=== PATIENT | female | born 1975 | race Caucasian/White ===

== ENCOUNTER 2018-02-27 20:35 | Emergency (ER) | payer OTHER ==
[~2018-02-27] VITALS: Ht 157.5 cm; Wt 93.9 kg
--- OUTSIDE RECORDS SUMMARY | ~2018-02-27 | XMS | Clinical Summary ---
Demographics + + + | Address | [address] | | | [place] [address] | + + + | Home Phone | | + + + | Preferred Language | Unknown | + + + | Marital Status | Unknown | + + + | Zoroastrianism Affiliation | Unknown | + + + | Race | Unknown | + + + | Ethnic Group | Unknown | + + + Author + + + | Author | Kory LawPal | + + + | Organization | [facility] | + + + | Address | Unknown | + + + | Phone | Unavailable | + + + Support + + +---------+ + | Name | Relationship | Address | Phone | + + +---------+ + | Contact,No | ECON | Unknown | | + + +---------+ + Care Team Providers + +------+ + | Care Head Waiter/Waitress Banquet Name | Role | Phone | + +------+ + | Darby eHnning NP | PP | | + +------+ + Allergies + + + + + + | Active Allergy | Reactions | Severity | Noted | Comments | | | | | Date | | + + + + + + | Amoxicillin | Rash | Medium | 12/01/19 | | | | | | 18 | | + + + + + + | Pregabalin | Swelling | Medium | 12/01/19 | Tongue swells | | | | | 18 | | + + + + + + | Ketorolac | Itching | Medium | 12/01/19 | | | | | | 18 | | + + + + + + | Tramadol | Rash | Medium | 12/01/19 | | | | | | 18 | | + + + + + + | Hydrocodone-Acetamin | Hives | High | 12/01/19 | | | ophen | | | 18 | | + + + + + + Current Medications + + +-------+---------+------+------+-------+ | Prescription | Sig. | Disp. | Refills | Star | End | Statu | | | | | | t | Date | s | | | | | | Date | | | + + +-------+---------+------+------+-------+ | omeprazole | Take 20 mg by mouth | | | | | Activ | | (PRILOSEC) 20 MG | every morning before | | | | | e | | capsule | breakfast. | | | | | | + + +-------+---------+------+------+-------+ | cyclobenzaprine | Take 10 mg by mouth | | | | | Activ | | (FLEXERIL) 10 MG | 3 (three) times | | | | | e | | tablet | daily as needed for | | | | | | | | Muscle spasms. | | | | | | + + +-------+---------+------+------+-------+ | albuterol | Inhale 2 puffs into | | | | | Activ | | (PROVENTIL | the lungs every 4 | | | | | e | | HFA;VENTOLIN HFA) | (four) hours as | | | | | | | 108 (90 Base) | needed for Wheezing. | | | | | | | MCG/ACT inhaler | | | | | | | + + +-------+---------+------+------+-------+ Active Problems + + + | Problem | Noted Date | + + + | Palpitations | 12/01/2017 | + + + Encounters +--------+ + + + + | Date | Type | Specialty | Care Team | Description | +--------+ + + + + | 12/09/ | Documentati | | Latoya Gonzalez, | Cardiac Event | | 2017 | on Only | | MD Gorman, | Monitor (7 day) | | | | | Terri Moreno CMA | | +--------+ + + + + | 12/09/ | Documentati | | Mine Barber, | Cardiac Event | | 2017 | on Only | | MA | Monitor (End of | | | | | | Study) | +--------+ + + + + | 12/03/ | Documentati | | Terri Gorman | Labs Only | | 2018 | on Only | | J, HAIRSPRING FABRICATION SUPERVISOR | | +--------+ + + + + | 12/01/ | Initial | | Latoya Gonzalez, | Abnormal EKG | | 2018 | consult | | MD | (Primary Dx); | | | | | | Palpitations | +--------+ + + + + | 12/01/ | Documentati | | Terri Gorman | Other (EKG) | | 2018 | on Only | | J, HAIRSPRING FABRICATION SUPERVISOR | | +--------+ + + + + from Last 3 Months Social History + +-------+ +--------+------+ | Tobacco Use | Types | Packs/Day | Years | Date | | | | | Used | | + +-------+ +--------+------+ | Former Smoker | | | | | + +-------+ +--------+------+ + +---+---+---+ | Smokeless Tobacco: | | | | | Never Used | | | | + +---+---+---+ + + +---------+ + | Alcohol Use | Drinks/We | oz/Week | Comments | | | ek | | | + + +---------+ + | No | | | | + + +---------+ + + + + | Sex Assigned at | Date Recorded | | | | + + + | Not on file | | + + + Last Filed Vital Signs + + + + | Vital Sign | Reading | Time Taken | + + + + | Blood Pressure | 150/76 | 12/01/2017 12:57 PM PST | + + + + | Pulse | 76 | 12/01/2017 12:57 PM PST | + + + + | Temperature | - | - | + + + + | Respiratory Rate | - | - | + + + + | Oxygen Saturation | 96% | 12/01/2017 12:57 PM PST | + + + + | Inhaled Oxygen | - | - | | Concentration | | | + + + + | Weight | 92.5 kg (204 lb) | 12/01/2017 12:57 PM PST | + + + + | Height | 157.5 cm (5' 2") | 12/01/2017 12:57 PM PST | + + + + | Body Mass Index | 37.31 | 12/01/2017 12:57 PM PST | + + + + Plan of Treatment +--------+---------+ + + + | Date | Type | Specialty | Care Team | Description | +--------+---------+ + + + | 04/06/ | Office | | Levi Garcia MD | | | 2018 | Visit | | [address] | | | | | | [place] | | | | | | [address] | | | | | | | | +--------+---------+ + + + | 05/10/ | Office | | Sonny Rod | | | 2017 | Visit | | MD Pam [address] | | | | | [address] | | | | | | [place] [address] | | | | | | [phone] | | | | | | | | +--------+---------+ + + + | 05/19/ | Office | | Levi Garcia MD | | | 2017 | Visit | | [address] | | | | | | [place] | | | | | | [address] | | | | | | | | +--------+---------+ + + + | 07/05/ | Office | | Sonny Rod | | | 2017 | Visit | | MD Pam [address] | | | | | [address] | | | | | | [place] [address] | | | | | | [phone] | | | | | | | | +--------+---------+ + + + + + + + + | Health Maintenance | Due Date | Last Done | Comments | + + + + + | Cervical Cancer | | | | | Screening (Pap) | 5 | | | + + + + + | Vaccine: Influenza | | 08/25/2011 | | | (Season Ended) | 8 | | | + + + + + | Vaccine: | | 09/09/2011 | | | Dtap/Tdap/Td (2 - | 1 | | | | Td) | | | | + + + + + Results EKG STANDARD 12 LEAD (12/01/2017 1:11 PM) + + + + | Component | Value | Ref Range | + + + + | Ventricular Rate | 70 | BPM | + + + + | Atrial Rate | 70 | BPM | + + + + | P-R Interval | 130 | ms | + + + + | QRS Duration | 76 | ms | + + + + | Q-T Interval | 378 | ms | + + + + | QTC Calculation | 408 | ms | | (Bezet) | | | + + + + | Calculated P [place] | 35 | degrees | + + + + | Calculated R [place] | 33 | degrees | + + + + | Calculated T [place] | 27 | degrees | + + + + | Diagnosis | Normal sinus rhythmNormal ECGNo previous | | | | ECGs availablePlease refer to Providers | | | | office visit note for Providers | | | | Interpretation.Confirmed by [facility] Read | | | | Only, SHAJI Alas ([id number]), manuscript editor Nathalia, | | | | John Pearl) on 12/01/2017 1:57:40 PM | | + + + + + + + | Specimen | Performing Laboratory | + + + | | [facility] [address] [place] [place] [place] [address] | + + + from Last 3 Months Insurance + +--------+ +------+-------+ + | Payer | Benefi | Subscriber | Type | Phone | Address | | | t Plan | ID | | | | | | / | | | | | | | Group | | | | | + +--------+ +------+-------+ + | MEDICAID | [employer] | xxxxxxxx | | | [address] | | | N | | | | [place] | | | [place] | | | | [phone] | | | STUDENT OFFICER | | | | | + +--------+ +------+-------+ + + +--------+ +--------+ + + | Guarantor Name | Accoun | Relation to | Date | Phone | Billing Address | | | t Type | Patient | of | | | | | | | | | | + +--------+ +--------+ + + | HUGOBECKY | Person | Self [birth year] Home: | [address] | | | al/Fam | | 1975 | [phone] [address] [place], | | | [place] | | | [phone] | [place] [address] | + +--------+ +--------+ + +
--- OUTSIDE RECORDS SUMMARY | ~2018-02-27 | XMS ---
Demographics + + + | Address | [address] | | | [address] | | | [place] [address] | + + + | Preferred Language | Unknown | + + + | Marital Status | Unknown | + + + | Sabianist Affiliation | Unknown | + + + | Race | Unknown | + + + | Ethnic Group | Unknown | + + + Author + + + | Author | [facility] | + + + | Organization | [facility] | + + + | Address | [address] | | | [place] [address] | + + + | Phone | | + + + Care Team Providers + + + + | Care Tool And Production Planner Name | Role | Phone | + + + + Unavailable | Unavailable | + + + + PROBLEMS +---------+ + + +--------+ + + | Type | Condition | ICD9-CM | [id number] | Onset | Condition | SNOMED | | | | Code | Code | Dates | Status | Code | +---------+ + + +--------+ + + | Problem | Hypertensi | | I10 | | Active | [id number] | | | on | | | | | | +---------+ + + +--------+ + + | Problem | Cervical | R59.0 | | | Active | [id number] | | | lymphadeno | | | | | | | | jl | | | | | | +---------+ + + +--------+ + + | Problem | Change in | R19.4 | | | Active | 25131454 | | | bowel | | | | | | | | habits | | | | | | +---------+ + + +--------+ + + | Problem | Dizziness | | R42 | | Active | [id number] | +---------+ + + +--------+ + + | Problem | Pain of | R10.10 | | | Active | 12140765 | | | upper | | | | | | | | abdomen | | | | | | +---------+ + + +--------+ + + | Problem | Back pain | | M54.9 | | Active | 808609009 | +---------+ + + +--------+ + + | Problem | Pharyngiti | | J02.9 | | Active | 784382006 | | | s | | | | | | +---------+ + + +--------+ + + | Problem | Eustachian | H69.80 | | | Active | 31819158 | | | tube | | | | | | | | dysfunctio | | | | | | | | n | | | | | | +---------+ + + +--------+ + + | Problem | Sánchez | B27.90 | | | Active | 450894571 | | | Waller | | | | | | | | infection | | | | | | +---------+ + + +--------+ + + | Problem | History of | Z87.19 | | | Active | 743017779 | | | stomach | | | | | | | | ulcers | | | | | | +---------+ + + +--------+ + + | Problem | Acute | | R10.13 | | Active | 42018461 | | | epigastric | | | | | | | | pain | | | | | | +---------+ + + +--------+ + + | Problem | GERD | | K21.9 | | Active | 661928791 | | | (gastroeso | | | | | | | | phageal | | | | | | | | reflux | | | | | | | | disease) | | | | | | +---------+ + + +--------+ + + | Problem | Fibromyalg | | M79.7 | | Active | 840384676 | | | ia | | | | | | +---------+ + + +--------+ + + | Problem | History of | Z87.19 | | | Active | 868929664 | | | hiatal | | | | | | | | hernia | | | | | | +---------+ + + +--------+ + + | Problem | Asthma | | J45.909 | | Active | 352796534 | +---------+ + + +--------+ + + ALLERGIES + + + + +--------+ | Substance | Reaction | Event Type | Date | Status | + + + + +--------+ | Tramadol HCl | rash | Drug Allergy | February, | Active | + + + + +--------+ | amoxicillin | rash | Drug Allergy | February, | Active | + + + + +--------+ | Vicodin | hives | Drug Allergy | February, | Active | + + + + +--------+ | Lyrica | lips swelling | Drug Allergy | February, | Active | + + + + +--------+ | Toradol | Itch | Non Drug | February, | Active | | | | Allergy | | | + + + + +--------+ SOCIAL HISTORY No smoking Hx information available PLAN OF CARE + +---------+ | Activity | Details | + +---------+ +---+ | | +---+ + + + | Follow Up | after fork lift mechanic has seen you Reason:null | + + + VITAL SIGNS + + + + | Height | 62 in | 2017-03-25 | + + + + | Weight | 196.2 lbs | 2017-03-25 | + + + + | BMI | 35.88 kg/m2 | 2017-03-25 | + + + + | Temperature | 97.6 degrees Fahrenheit | 2017-03-25 | + + + + | Heart Rate | 85 /min | 2017-03-25 | + + + + | Blood pressure systolic | 149 mm Hg | 2017-03-25 | + + + + | Blood pressure diastolic | 79 mm Hg | 2017-03-25 | + + + + MEDICATIONS + + +---------+ + + + +--------+ | Medicati | Instruct | Dosage | Frequenc | Start | End Date | Duration | Status | | on | ions | | y | Date | | | | + + +---------+ + + + +--------+ | Nexium | Orally | 1 | 24h | | | | Active | | 20 MG | Once a | capsule | | | | | | | | day | | | | | | | + + +---------+ + + + +--------+ | Albutero | Inhalati | 2 puffs | | Jul, | | 1 month | Active | | l | on q6hrs | | | 2015 | | | | | Sulfate | prn | | | | | | | | HFA 108 | | | | | | | | | (90 | | | | | | | | | Base) | | | | | | | | | MCG/ACT | | | | | | | | + + +---------+ + + + +--------+ RESULTS No Results PROCEDURES + + + + + | Procedure | Date Ordered | Related Diagnosis | Body Site | + + + + + | Est Level IV | March 25, 2017 | | | | Extended | | | | + + + + + IMMUNIZATIONS No Known Immunizations"
--- OUTSIDE RECORDS SUMMARY | ~2018-02-27 | XMS | Encounter Summary ---
Demographics + + + | Address | [address] | | | [place] [address] | + + + | Home Phone | | + + + | Preferred Language | Unknown | + + + | Marital Status | Unknown | + + + | Advent Affiliation | Unknown | + + + | Race | Unknown | + + + | Ethnic Group | Unknown | + + + Author + + + | Author | [facility] | + + + | Organization | [facility] | + + + | Address | Unknown | + + + | Phone | Unavailable | + + + Support + + +---------+ + | Name | Relationship | Address | Phone | + + +---------+ + | Contact,No | ECON | Unknown | | + + +---------+ + Care Team Providers + +------+ + | Care Outside Barrel Lathe Operator Name | Role | Phone | + +------+ + | Darby Henning NP | PCP | | + +------+ + Reason for Visit + + + | Reason | Comments | + + + | Establish Care | | + + + Consultation (Routine) + +--------+ + + + + | Status | Reason | Specialty | Diagnoses / | Referred By | Referred To | | | | | Procedures | Contact | Contact | + +--------+ + + + + | Authorized | | Cardiology | Diagnoses | Juvencio, | Carlos, | | | | | Abnormal | LIBORIO Pastor | MD Latoya | | | | | electrocardi | [address] | [address] | | | | | ogram (ECG) | [place] | Dr [address] | | | | | (EKG) | [place] [address] | [place] | | | | | Localized | Phone: | [phone] Phone: | | | | | edema | [phone] | [phone] | | | | | Procedures | Fax: | Fax: | | | | | consult | [phone] | [phone] | + +--------+ + + + + Encounter Details +--------+ + + + + | Date | Type | Department | Care Team | Description | +--------+ + + + + | 12/01/ | Initial | [facility] | Latoya South, | Abnormal EKG | | 2018 | consult | Cardiology [facility] | [address] | (Primary Dx); | | | | [address] | [address], | Palpitations | | | | [address] | [place] [address] | | | | | [place] [address] | [phone] | | | | | [phone] | | | +--------+ + + + + Social History + +-------+ +--------+------+ | Tobacco [...] on file | | + + + as of this encounter Last Filed Vital Signs + + + [...] PM PST | + + + + in this encounter Progress Notes Latoya South MD - 12/01/2017 1:00 PM PSTFormatting of this note may be different fro m the original. [facility] Service: Cardiology Initial Consult Note Name of Performance Reporter: Latoya South MD Reason for Consultation: Abnormal ECG Requesting Physician: Juvencio Internal [facility] History Obtained From: patient CHIEF COMPLAINT: Abnormal ECG HISTORY OF PRESENT ILLNESS: Patient is 42 year old female, has been complaining of palpitations. Episodes started havin g symptoms few months ago. Happen daily, last for 5-10 mins, happens more than once. Symptoms are associated with chest pressure/pain, diaphoresis, shortness of breath and jade r dizziness no syncopal episodes. Patient was diagnosed with fibromyalgia and since has been on disability. Takes care of her grandson, goes shopping greatly however she finds difficulty in ambulatio n secondary to her joint pain. Gets tired easily and needs to take breaks even while cleaning the house. Has history of hypertension however she gained weight on a medicine that she does not remem cheli, since she stopped taking it. REVIEW OF SYSTEMS Constitutional: Chronic fatigue. Chronic fibromyalgia. HENT: Negative for nosebleeds, no runny nose or sneezing. Eyes: Negative for visual disturbance, no double vision, tearing or itching. Respiratory: Negative for cough and shortness of breath, no hemoptysis Cardiovascular: As HPI. Gastrointestinal: Negative for nausea, vomiting, abdominal pain and blood in stool. Genitourinary: Negative for hematuria, no dysuria. Musculoskeletal: arthritic and joint pain. Skin: Negative for color change, no rash. Neurological: Negative for dizziness, syncope and numbness. Hematological: Does not bruise/bleed easily. Psychiatric/Behavioral: The patient is not nervous/anxious. PAST MEDICAL & SURGICAL HISTORY Past Medical History Diagnosis Date Arthralgia Asthma Past Surgical History Procedure Laterality Date APPENDECTOMY CHOLECYSTECTOMY LITHOTRIPSY TONSILLECTOMY TUBAL LIGATION MEDICATIONS Home Medications Current Outpatient Prescriptions: albuterol (PROVENTIL HFA;VENTOLIN HFA) 108 (90 Base) MCG/ACT inhaler, Inhale 2 puffs i nto the lungs every 4 (four) hours as needed for Wheezing., Disp: , Rfl: cyclobenzaprine (FLEXERIL) 10 MG tablet, Take 10 mg by mouth 3 (three) times daily as needed for Muscle spasms., Disp: , Rfl: omeprazole (PRILOSEC) 20 MG capsule, Take 20 mg by mouth every morning before breakfas t., Disp: , Rfl: Allergies Allergies Allergen Reactions Vicodin [Hydrocodone-Acetaminophen] Hives Amoxicillin Rash Lyrica [Pregabalin] Swelling Tongue swells Toradol [Ketorolac] Itching Tramadol Rash FAMILY HISTORY Family History Problem Relation Age of Onset Family history unknown: Yes SOCIAL HISTORY Social History Social History Marital status: Unknown Spouse name: N/A Number of children: N/A Years of education: N/A Occupational History Not on file. Social History Main Topics Smoking status: Former Smoker Smokeless tobacco: Never Used Alcohol use No Drug use: Unknown Sexual activity: Not on file Other Topics Concern Not on file Social History Narrative No narrative on file PHYSICAL EXAM Vital Signs: BP 150/76 (BP Location: Left upper arm, Patient Position: Sitting) | Pulse 76 | Ht 1.575 m (5' 2") | Wt 92.5 kg (204 lb) | SpO2 96% | BMI 37.31 kg/m Constitutional: Well-developed. Neck: No JVD present. No thyromegaly present. Cardiovascular: Regular rhythm, S1 normal and S2 normal. No murmur heard. Pulses: Carotid pulses are 2+ on the right side, and 2+ on the left side. Radial pulses are 2+ on the right side, and 2+ on the left side. Pulmonary/Chest: Effort normal and breath sounds normal. No wheezes. No rales. Abdominal: Soft. No tenderness. Musculoskeletal: No edema. Neurological: Alert. No cranial nerve deficit. Skin: Warm and dry. DATA 10/06/2017 WBC 10.9, hemoglobin 14.7, platelets 327, sodium 139, potassium 3.6, chloride 103, bicarbon ate 26, BUN 10, creatinine 0.9. GFR 68, AST 13, AST 13, alk phos 55, TSH 2.46 No results found for: NA, K, CL, CO2, BUN, CREATININE, GLUCOSE, CALCIUM No results found for: CKTOTAL, CKMB, CKMBINDEX, TROPONINI No results found for: WBC, HGB, HCT, MCV, PLT No results found for: CHOL, TRIG, LDL, LDL, GLUF, HGBA1C, TSH EK12/01/2017 Ordered and reviewed by myself showed normal sinus rhythm with normal axis overall normal E KG. Last Echo: Last stress test: Last cath: Carotid US: AAA screening: Lower extremity US: OTHER: ASSESSMENT & PLAN Patient is 42-year-old female with the following medical problems 1. Palpitation, daily basis associated with dizziness, shortness of breath and chest pain. 2. Hypertension, untreated. 3. Fibromyalgia. 4. Limited activity level. Recommendations: Giving patient's symptoms will proceed with event monitor to evaluate for any arrhythmia. Discussed with the patient starting antihypertensive however patient is concerned about gai bart weight. Will readdress with the patient after Holter monitor evaluation which may indicate a differ ent antihypertensive. Discussed with the patient lifestyle and weight loss. Thank you for allowing me to participate in the care of this patient. Primary Care Physician: aDrby South MD 12/01/2017in this encounter Plan of Treatment +--------+---------+ + + + | Date | Type | Specialty | Care Team | Description | +--------+---------+ + + + | 04/06/ | Office | Rheumatology | Levi Garcia MD | | | 2017 | Visit | | [address] | | | | | | [place] | | | | | | [address] | | | | | | | | +--------+---------+ + + + | 05/10/ | Office | Neurology | Sonny Rod | | | 2017 | Visit | | MD Pam [address] | | | | | [address] | | | | | | [place] [address] | | | | | | [phone] | | | | | | | | +--------+---------+ + + + | 05/19/ | Office | Rheumatology | Levi Garcia MD | | | 2017 | Visit | | [address] | | | | | | [place] | | | | | | [address] | | | | | | | | +--------+---------+ + + + | 07/05/ | Office | Neurology | Sonny Rod | | | 2017 | Visit | | MD Pam [address] | | | | [address] | | | | | | [place] [address] | | | | | | [phone] | | | | | | | | +--------+---------+ + + + + +--------+ + + | Name | Priori | Associated Diagnoses | Order Schedule | | | ty | | | + +--------+ + + | CRD Cardiac Event Monitor | Routin | Abnormal EKG | Expected: | | | e | Palpitations | 12/01/2017, Expires: | | | | | 12/01/2018 | + +--------+ + + as of this encounter Results EKG STANDARD 12 LEAD (12/01/2017 1:11 [...] + + + + | Calculated P [place] | 35 | degrees | + + + + | Calculated R [place] | 33 | degrees | + + + + | Calculated T [place] | 27 | degrees | + + + + | Diagnosis | Normal sinus rhythmNormal ECGNo previous | | | | ECGs availablePlease refer to Providers | | | | office visit note for Providers | | | | Interpretation.Confirmed by [facility] [place] Read | | | | Only, SHAJI Alas ([id number]), primer expeditor and drier Nathalia, | | | | John ([id number]) on 12/01/2017 1:57:40 PM | | + + + + + + + | Specimen | Performing Laboratory | + + + | | [facility] E[facility] [address] [place] [address] | + + + in this encounter Visit Diagnoses + + | Diagnosis | + + | Abnormal EKG - Primary | + + | Nonspecific abnormal electrocardiogram (ECG) (EKG) | + + | Palpitations | + +
--- OUTSIDE RECORDS SUMMARY | ~2018-02-27 | XMS | Encounter Summary ---
Demographics + + + | Address | [address] | | | [place] [address] | + + + | Home Phone | | + + + | Preferred Language | Unknown | + + + | Marital Status | Single | + + + | Rastafarian Affiliation | Unknown | + + + | Race | Unknown | + + + | Ethnic Group | Unknown | + + + Author + + + | Author | [facility] | | | and [place] | + + + | Organization | [facility] | | | and [place] | + + + | Address | Unknown | + + + | Phone | Unavailable | + + + Support + + +---------+ + | Name | Relationship | Address | Phone | + + +---------+ + | None,Provided | ECON | Unknown | + | + + +---------+ + | Listed,None | ECON | Unknown | + | + + +---------+ + Care Team Providers + +------+ + | Care Quick Technician Name | Role | Phone | + +------+ + | Darby Henning | PCP | | + +------+ + Encounter Details +--------+ + + + + | Date | Type | Department | Care Team | Description | +--------+ + + + + | 12/21/ | Abstract | [facility] [place] | [facility], | | | 2018 | | GASTROENTEROLOGY | EBONY Sesay [address] | | | | | [address] [place] | [place] | | | | | [address] [place], [place] | [place], [place] | | | | | [address] | [address] | | | | | [phone] | | | +--------+ + + + + Social History + +-------+ +--------+ + | Tobacco Use | Types | Packs/Day | Years | Date | | | | | Used | | + +-------+ +--------+ + | Former Smoker | | 1 | 17 | Quit: 09/06/2012 | + +-------+ +--------+ + + +---+---+---+ | Smokeless Tobacco: | | [...] + + + as of this encounter Plan of Treatment Not on fileas of this encounter Results CBC with Differential (10/06/2017) + +-------+ + | Component | Value | Ref Range | + +-------+ + | MCH | 30.0 | 26.0 - 33.0 pg | + +-------+ + | MCHC | 33.0 | 30.0 - 36.0 % | + +-------+ + | BASOPHILS % | 0.3 | 0.0 - 2.0 % | + +-------+ + + + + | Specimen | Performing Laboratory | + + + | Blood | | + + + Comprehensive Metabolic Panel (10/06/2017) + +-------+ + | Component | Value | Ref Range | + +-------+ + | ANION GAP | 15 | 7 - 21 mmol/L | + +-------+ + | BUN/Creatinine Ratio | 11.1 | 6 - 28.6 | + +-------+ + | Globulin | 3 | 1.8 - 3.5 | + +-------+ + | Albumin/Globulin | 1.4 | 1.1 - 2.4 | | Ratio | | | + +-------+ + + + + | Specimen | Performing Laboratory | + + + | Blood | | + + + Hepatitis A, B, C Panel, Reflex (10/06/2017) + + + + | Component | Value | Ref Range | + + + + | HEP A IGM AB, REF | Negative | | + + + + | Hepatitis B Surface | Negative | | | Ag, External | | | + + + + | Hepatitis B Core Ab, | Non Reactive | Non Reactive | | Total | | | + + + + | HCV Ab | Negative | | + + + + | HEP B SURFACE | Negative | | | ANTIBODY | | | + + + + + + + | Specimen | Performing Laboratory | + + + | Blood | | + + + External Lab: SURINDER (10/06/2017) + +-------+ + | Component | Value | Ref Range | + +-------+ + | BUN, External | 10 | 6 - 23 | + +-------+ + + + + | Specimen | Performing Laboratory | + + + | | EXTERNAL LAB | + + + External Lab: Glucose (10/06/2017) + +-------+ + | Component | Value | Ref Range | + +-------+ + | Glucose, External | 85 | 70 - 100 | + +-------+ + + + + | Specimen | Performing Laboratory | + + + | | EXTERNAL LAB | + + + External Lab: ALT (10/06/2017) + +-------+ + | Component | Value | Ref Range | + +-------+ + | ALT, External | 13 | 7 - 52 | + +-------+ + + + + | Specimen | Performing Laboratory | + + + | | EXTERNAL LAB | + + + External Lab: AST (10/06/2017) + +-------+ + | Component | Value | Ref Range | + +-------+ + | AST, External | 13 | 13 - 39 | + +-------+ + + + + | Specimen | Performing Laboratory | + + + | | EXTERNAL LAB | + + + External Lab: Alkaline Phosphatase (10/06/2017) + +-------+ + | Component | Value | Ref Range | + +-------+ + | ALP, External | 55 | 31 - 130 | + +-------+ + + + + | Specimen | Performing Laboratory | + + + | | EXTERNAL LAB | + + + External Lab: Bilirubin, Total (10/06/2017) + +-------+ + | Component | Value | Ref Range | + +-------+ + | Bilirubin, Total, | 0.4 | 0 - 1.2 | | External | | | + +-------+ + + + + | Specimen | Performing Laboratory | + + + | | EXTERNAL LAB | + + + External Lab: Albumin (10/06/2017) + +-------+ + | Component | Value | Ref Range | + +-------+ + | Albumin, External | 4.3 | 3.5 - 5 | + +-------+ + + + + | Specimen | Performing Laboratory | + + + | | EXTERNAL LAB | + + + External Lab: Protein, Total (10/06/2017) + +-------+ + | Component | Value | Ref Range | + +-------+ + | Protein, Total, | 7.3 | 6 - 8 | | External | | | + +-------+ + + + + | Specimen | Performing Laboratory | + + + | | EXTERNAL LAB | + + + External Lab: Calcium (10/06/2017) + +-------+ + | Component | Value | Ref Range | + +-------+ + | Calcium, External | 9 | 8.4 - 10.2 | + +-------+ + + + + | Specimen | Performing Laboratory | + + + | | EXTERNAL LAB | + + + External Lab: Carbon Dioxide (10/06/2017) + +-------+ + | Component | Value | Ref Range | + +-------+ + | Carbon Dioxide, | 25 | 19 - 31 | | External | | | + +-------+ + + + + | Specimen | Performing Laboratory | + + + | | EXTERNAL LAB | + + + External Lab: Chloride (10/06/2017) + +-------+ + | Component | Value | Ref Range | + +-------+ + | Chloride, External | 103 | 95 - 112 | + +-------+ + + + + | Specimen | Performing Laboratory | + + + | | EXTERNAL LAB | + + + External Lab: Potassium (10/06/2017) + +-------+ + | Component | Value | Ref Range | + +-------+ + | Potassium, External | 3.6 | 3.6 - 5.1 | + +-------+ + + + + | Specimen | Performing Laboratory | + + + | | EXTERNAL LAB | + + + External Lab: Sodium (10/06/2017) + +-------+ + | Component | Value | Ref Range | + +-------+ + | Sodium, External | 139 | 132 - 143 | + +-------+ + + + + | Specimen | Performing Laboratory | + + + | | EXTERNAL LAB | + + + External Lab: CBC (10/06/2017) + +-------+ + | Component | Value | Ref Range | + +-------+ + | WBC, External | 10.9 | 4.5 - 11 | + +-------+ + | HGB, External | 14.7 | 12 - 16 | + +-------+ + | HCT, External | 44 | 35 - 45 | + +-------+ + | PLT, External | 327 | 140 - 440 | + +-------+ + | Neutrophils %, | 66.2 | 39 - 80 | | External | | | + +-------+ + | Lymphocytes %, | 26 | 24 - 44 | | External | | | + +-------+ + | Monocytes %, | 4.9 | 0 - 12 | | External | | | + +-------+ + | Eosinophils %, | 2.6 | 0 - 6 | | External | | | + +-------+ + | RBC, External | 4.98 | 3.8 - 5.1 | + +-------+ + | MCV, External | 88 | 81 - 99 | + +-------+ + | RDW, External | 13.4 | 10.5 - 15 | + +-------+ + + + + | Specimen | Performing Laboratory | + + + | | EXTERNAL LAB | + + + External Lab: TSH (10/06/2017) + +-------+ + | Component | Value | Ref Range | + +-------+ + | TSH, External | 2.46 | 0.27 - 4.2 | + +-------+ + + + + | Specimen | Performing Laboratory | + + + | Blood | EXTERNAL LAB | + + + External Lab: eGFR (10/06/2017) + +-------+ + | Component | Value | Ref Range | + +-------+ + | eGFR, External | >60 | 60 - 99,999 | + +-------+ + + + + | Specimen | Performing Laboratory | + + + | Blood | EXTERNAL LAB | + + + External Lab: Creatinine (10/06/2017) + +-------+ + | Component | Value | Ref Range | + +-------+ + | Creatinine, External | 0.9 | 0.6 - 1.35 | + +-------+ + + + + | Specimen | Performing Laboratory | + + + | Blood | EXTERNAL LAB | + + + in this encounter Visit Diagnoses Not on filein this encounter"
--- OUTSIDE RECORDS SUMMARY | ~2018-02-27 | XMS | Encounter Summary ---
Demographics + + + | Address | [address] | | | [place] [address] | + + + | Home Phone | | + + + | Preferred Language | Unknown | + + + | Marital Status | Unknown | + + + | Roman Catholic Affiliation | Unknown | + + + | Race | Unknown | + + + | Ethnic Group | Unknown | + + + Author + + + | Author | [employer] | + + + | Organization | [facility] | + + + | Address | Unknown | + + + | Phone | Unavailable | + + + Support + + +---------+ + | Name | Relationship | Address | Phone | + + +---------+ + | Contact,No | ECON | Unknown | | + + +---------+ + Care Team Providers + +------+ + | Care Credentialing Coordinator Name | Role | Phone | + +------+ + | Darby Henning NP | PCP | | + +------+ + Reason for Visit +--------+ + | Reason | Comments | +--------+ + | Other | EKG | +--------+ + Encounter Details +--------+ + + + + | Date | Type | Department | Care Team | Description | +--------+ + + + + | 12/01/ | Documentati | [facility] | Terri Gorman | Aurelia (EKG) | | 2018 | on Only | Cardiology Sebastien Moreno CMA | | | | | [address] | | | | | | [address] | | | | | | [place] [address] | | | | | | [phone] | | | +--------+ + + + [...] as of this encounter Plan of Treatment +--------+---------+ + + + | Date | Type | Specialty | Care Team | Description | +--------+---------+ + + + | 04/06/ | Office | Rheumatology | Levi Garcia MD | | | 2017 | Visit | | [address] | | | | | | [place] | | | | | | [address] | | | | | | | | +--------+---------+ + + + | 05/10/ | Office | Neurology | Sonny Rod | | | 2017 | Visit | | [address] | | | | | | [address] | | | | | | [place] [address] | | | | | | [phone] | | | | | | | | +--------+---------+ + + + | 05/19/ | Office | Rheumatology | Levi Garcia MD | | | 2017 | Visit | | [address] | | | | | | [place] | | | | | | [address] | | | | | | | | +--------+---------+ + + + | 07/05/ | Office | Neurology | Sonny Rod | | | 2017 | Visit | | [address] | | | | | | [address] | | | | | | [place] [address] | | | | | | [phone] | | | | | | | | +--------+---------+ + + + as of this encounter Visit Diagnoses Not on filein this encounter"
--- OUTSIDE RECORDS SUMMARY | ~2018-02-27 | XMS | Clinical Summary ---
Demographics + + + | Address | [address] | | | [place] [address] | + + + | Home Phone | | + + + | Preferred Language | Unknown | + + + | Marital Status | Single | + + + | Jewish Affiliation | Unknown | + + + | Race | Unknown | + + + | Ethnic Group | Unknown | + + + Author + + + | Author | [facility] | | | and [place] | + + + | Organization | [facility] | | | and [...] Team Providers + +------+ + | Care Glove Operator Name | Role | Phone | + +------+ + | Darby Henning | PP | | + +------+ + Allergies Not on File Current Medications + + +-------+---------+------+------+-------+ | Prescription | Sig. | Disp. | Refills | Star | End | Statu | | | | | | t | Date | s | | | | | | Date | | | + + +-------+---------+------+------+-------+ | esomeprazole | Take 20 mg by mouth | | | | | Activ | | (NEXIUM) 20 mg | every morning | | | | | e | | capsule | (before breakfast). | | | | | | + + +-------+---------+------+------+-------+ | albuterol (PROAIR | Inhale 2 puffs into | | | | | Activ | | HFA) 90 mcg/puff | the lungs every 6 | | | | | e | | inhaler | hours as needed for | | | | | | | | Wheezing. | | | | | | + + +-------+---------+------+------+-------+ Active Problems Not on file Encounters +--------+ + + + + | Date | Type | Specialty | Care Team | Description | +--------+ + + + + | 12/21/ | Abstract | | Heriberto, | | | 2017 | | | EBONY Sesay | | +--------+ + + + + from Last 3 Months Immunizations + + + + | Name | Dates Previously Given | Next Due | + + + + | INFLUENZA, | 07/29/2016 | | | UNSPECIFIED | | | | FORMULATION | | | + + + + Family History + + +---------+ + | Medical History | Relation | Name | Comments | + + +---------+ + | No Known Problems | Child | | | + + +---------+ + | No Known Problems | Child | | | + + +---------+ + | No Known Problems | Child | | | + + +---------+ + | Cancer | Father | | | + + +---------+ + | No Known Problems | Maternal | | | | | Grandfath | | | | | er | | | + + +---------+ + | No Known Problems | Maternal | | | | | Grandmoth | | | | | er | | | + + +---------+ + | No Known Problems | Mother | | | + + +---------+ + | Breast cancer | Other | FAMILY | | | | | HX | | + + +---------+ + | Cervical cancer | Other | FAMILY | | | | | HX | | + + +---------+ + | Diabetes | Other | FAMILY | | | | | HX | | + + +---------+ + | Lung cancer | Other | FAMILY | | | | | HX | | + + +---------+ + | Prostate cancer | Other | FAMILY | | | | | HX | | + + +---------+ + | No Known Problems | Paternal | | | | | Grandfath | | | | | er | | | + + +---------+ + | No Known Problems | Paternal | | | | | Grandmoth | | | | | er | | | + + +---------+ + + + +--------+ + | Relation | Name | Status | Comments | + + +--------+ + | Child | | Alive | | + + +--------+ + | Child | | Alive | | + + +--------+ + | Child | | Other | STATUS UNKNOWN | + + +--------+ + | Father | | Alive | STATUS UNKNOWN | + + +--------+ + | Maternal Grandfather | | Other | STATUS UNKNOWN | + + +--------+ + | Maternal Grandmother | | Other | STATUS UNKNOWN | + + +--------+ + | Mother | | Alive | | + + +--------+ + | Other | FAMILY HX | Alive | | + + +--------+ + | Paternal Grandfather | | Other | STATUS UNKNOWN | + + +--------+ + | Paternal Grandmother | | Other | STATUS UNKNOWN | + + +--------+ + Social History + +-------+ +--------+ + [...] on file | | + + + Plan of Treatment + + + + + | Health Maintenance | Due Date | Last Done | Comments | + + + + + | Vaccine: | | | | | Dtap/Tdap/Td (1 - | 3 | | | | Tdap) | | | | + + + + + | CERVICAL CANCER | | | | | SCREENING (PAP EVERY | 5 | | | | 3 YEARS 21-64 ) | | | | + + + + + | Vaccine: Influenza | | 07/29/2016 | | | (Season Ended) | 8 | | | + + + + + Results Not on filefrom Last 3 Months Insurance + +--------+ +--------+ +---------+ | Payer | Benefi | Subscriber | Type | Phone | Address | | | t Plan | ID | | | | | | / | | | | | | | Group | | | | | + +--------+ +--------+ +---------+ | [employer] | [employer] | [phone] | Medica | [phone] | | | MEDICAID HMO | HEALTH | | id | [id number] | | | | [place] | | | | | | | [place]MO [place] | | | | | + +--------+ +--------+ +---------+ + +--------+ +--------+ + + | Guarantor Name | Accoun | Relation to | Date | Phone | Billing Address | | | t Type | Patient | of | | | | | | | | | | + +--------+ +--------+ + + | ANTIONETTE ARIAS | Person | Self [birth year] Home: | [address] | | | al/Fam | | 1975 | [phone] [address] [place], | | | [place] | | | [address] | [place] [address] | + +--------+ +--------+ + +"
--- OUTSIDE RECORDS SUMMARY | ~2018-02-27 | XMS | Encounter Summary ---
Demographics + + + | Address | [address] | | | [place] [address] | + + + | Home Phone | | + + + | Preferred Language | Unknown | + + + | Marital Status | Unknown | + + + | Taoist Affiliation | Unknown | + + + | Race | Unknown | + + + | Ethnic Group | Unknown | + + + Author + + + | Author | [employer] [employer] | + + + | Organization | [facility] | + + + | Address | Unknown | + + + | Phone | Unavailable | + + + Support + + +---------+ + | Name | Relationship | Address | Phone | + + +---------+ + | Contact,No | ECON | Unknown | | + + +---------+ + Care Team Providers + +------+ + | Care General Cleaner Name | Role | Phone | + [...] | | | | | [address] | | | | | | [address] | | | | | | [place] [address] | | | | | | [phone] | | | +--------+ + + + [...] [place] | | | | | | [address] | | | | | | | | +--------+---------+ + + + | 05/10/ | Office | Neurology | Sonny Rod | | | 2017 | Visit | | [address] | | | | | | [address] | | | | | | [place] [address] | | | | | | [phone] | | | | | | | | +--------+---------+ + + + | 05/19/ | Office | Rheumatology | Levi Garcia MD | | | 2017 | Visit | | [address] | | | | | | [place] | | | | | | [address] | | | | | | | | +--------+---------+ + + + | 07/05/ | Office | Neurology | Sonny Rod | | | 2017 | Visit | | [address] | | | | | | [address] | | | | | | [place] [address] | | | | | | [phone] | | | | | | | | +--------+---------+ + + + as of this encounter Visit Diagnoses Not on filein this encounter"
--- OUTSIDE RECORDS SUMMARY | ~2018-02-27 | XMS | Clinical Summary ---
Demographics + + + | Address | [address] | | | [place] [address] | + + + | Home Phone | | + + + | Preferred Language | Unknown | + + + | Marital Status | Unknown | + + + | Moravian Affiliation | Unknown | + + + | Race | Unknown | + + + | Ethnic Group | Unknown | + + + Author + + + | Author | [employer] | + + + | Organization | [facility] | + + + | Address | Unknown | + + + | Phone | Unavailable | + + + Support + + +---------+ + | Name | Relationship | Address | Phone | + + +---------+ + | Contact,No | ECON | Unknown | | + + +---------+ + Care Team Providers + +------+ + | Care Child Protective Services Social Worker Name | Role | Phone | + +------+ + | Darby Henning NP | PP | | + +------+ [...] 2018 | on Only | | J, SHIRRER | | +--------+ + + + + | 12/01/ | Initial | | Latoya Gonzalez, | Abnormal EKG | | 2018 | consult | | MD | (Primary Dx); | | | | | | Palpitations | +--------+ + + + + | 12/01/ | Documentati | | Terri Gorman | Other (EKG) | | 2018 | on Only | | J, SHIRRER | | +--------+ + + + + [...] [place] | | | | | | [address] | | | | | | | | +--------+---------+ + + + | 05/10/ | Office | | Sonny Rod | | | 2017 | Visit | | [address] | | | | | | [address] | | | | | | [place] [address] | | | | | | [phone] | | | | | | | | +--------+---------+ + + + | 05/19/ | Office | | Levi Garcia MD | | | 2017 | Visit | | [address] | | | | | | [place] | | | | | | [address] | | | | | | | | +--------+---------+ + + + | 07/05/ | Office | | Sonny Rod | | | 2017 | Visit | | [address] | | | | | | [address] | | | | | | [place] [address] | | | | | | [phone] | | | | | | | [...] + + + + | Calculated P [place] | 35 | degrees | + + + + | Calculated R [place] | 33 | degrees | + + + + | Calculated T [place] | 27 | degrees | + + + + | Diagnosis | Normal sinus rhythmNormal ECGNo previous | | | | ECGs availablePlease refer to Providers | | | | office visit note for Providers | | | | Interpretation.Confirmed by [facility] Tommie Read | | | | Only, SHAJI Alas ([id number]), map editor Nathalia, | | | | John Pearl) on 12/01/2017 1:57:40 PM | | + + + + + + + | Specimen | Performing Laboratory | + + + | | [facility] [address] [place] [address] | + + + from Last 3 [...] | | [place] | | | | [address] | | | ELECTRODYNAMICIST | | | | | + +--------+ [...] [place] | | | [address] | [place] [address] | + +--------+ +--------+ + +
--- OUTSIDE RECORDS SUMMARY | ~2018-02-27 | XMS | Encounter Summary ---
Demographics + + + | Address | [address] | | | [place] [address] | + + + | Home Phone | | + + + | Preferred Language | Unknown | + + + | Marital Status | Single | + + + | Caodaism Affiliation | Unknown | + + + | Race | Unknown | + + + | Ethnic Group | Unknown | + + + Author + + + | Author | [facility] | | | and [place] | + + + | Organization | [facility] | | | and [...] Team Providers + +------+ + | Care Rd Lab Technician Name | Role | Phone | + +------+ + | Darby Henning | PCP | | + +------+ + Encounter Details +--------+ + + + + | Date | Type | Department | Care Team | Description | +--------+ + + + + | 12/21/ | Abstract | [facility] [place] | [facility], | | | 2018 | | GASTROENTEROLOGY | EBONY Sesay [address] | | | | | [address] [place] | [place] | | | | | [address] [place], [place] | [place], [place] | | | | | [address] | [address] | | | | | [phone] | | | +--------+ + + + [...]
--- OUTSIDE RECORDS SUMMARY | ~2018-02-27 | XMS | Encounter Summary ---
Demographics + + + | Address | [address] | | | [place] [address] | + + + | Home Phone | | + + + | Preferred Language | Unknown | + + + | Marital Status | Unknown | + + + | Faith Affiliation | Unknown | + + + | Race | Unknown | + + + | Ethnic Group | Unknown | + + + Author + + + | Author | [employer] | + + + | Organization | [facility] | + + + | Address | Unknown | + + + | Phone | Unavailable | + + + Support + + +---------+ + | Name | Relationship | Address | Phone | + + +---------+ + | Contact,No | ECON | Unknown | | + + +---------+ + Care Team Providers + +------+ + | Care Still Cleaner Name | Role | Phone | + +------+ + | Darby Henning NP | PCP | | + +------+ + Reason for Visit + + + | Reason | Comments | + + + | Cardiac Event | 7 day | | Monitor | | + + + Holter (Routine) +--------+--------+ + + + + | Status | Reason | Specialty | Diagnoses / | Referred By | Referred To | | | | | Procedures | Contact | Contact | +--------+--------+ + + + + | Closed | | Cardiology | Diagnoses | Jean-Claude Gonzalez | | | | | 1 week | MD Latoya | Cardiology | | | | | monitor | [address] | | | | | Procedures | [address] | | | | | | CRD EVENT | [address] | [place] | | | | | MONITOR | [place], [place] | [address] | | | | | | [address] | Phone: | | | | | | Phone: | [phone] | | | | | | [phone] | Fax: | | | | | | Fax: | [phone] | | | | | | [phone] | | +--------+--------+ + + + + Encounter Details +--------+ + + + + | Date | Type | Department | Care Team | Description | +--------+ + + + + | 12/09/ | Documentati | [facility] | Latoya Gonzalez, | Cardiac Event | | 2018 | on Only | Cardiology Sebastien | [address] | Monitor (7 day) | | | | [address] | [address], | | | | | [place] [address] | [place] [address] | | | | | [place] [address] | [phone] | | | | | [phone] | | | | | | | Terri Gorman | | | | | | J, TECHNICAL DELIVERY MANAGER | | +--------+ + + + + [...] + + + as of this encounter Progress Notes Terri Gorman CMA - 12/09/2017 12:00 PM PST7 day cardiac event monitor placed on pa tie. EOB/Billing information discussed. Instructions given and understood. Patient instruc maurice to call [facility] for any billing or monitor questions.in this encounter Plan of Treatment +--------+---------+ + + + | Date | Type | Specialty | Care Team | Description | +--------+---------+ + + + | 04/06/ | Office | Rheumatology | Levi Garcia MD | | | 2017 | Visit | | [address] | | | | | | [place] | | | | | | [address] | | | | | | | | +--------+---------+ + + + | 05/10/ | Office | Neurology | Sonny Rod | | | 2017 | Visit | | [address] | | | | | | [address] | | | | | | [place] [address] | | | | | | [phone] | | | | | | | | +--------+---------+ + + + | 05/19/ | Office | Rheumatology | Levi Garcia MD | | | 2017 | Visit | | [address] | | | | | | [place] | | | | | | [address] | | | | | | | | +--------+---------+ + + + | 07/05/ | Office | Neurology | Sonny Rod | | | 2017 | Visit | | [address] | | | | | | [address] | | | | | | [place] [address] | | | | | | [phone] | | | | | | | | +--------+---------+ + + + as of this encounter Visit Diagnoses + + | Diagnosis | + + | Abnormal EKG | + + | Nonspecific abnormal electrocardiogram (ECG) (EKG) | + + | Palpitations | + +"
--- OUTSIDE RECORDS SUMMARY | ~2018-02-27 | XMS | Encounter Summary ---
Demographics + + + | Address | [address] | | | [place] [address] | + + + | Home Phone | | + + + | Preferred Language | Unknown | + + + | Marital Status | Unknown | + + + | Sikhism Affiliation | Unknown | + + + | Race | Unknown | + + + | Ethnic Group | Unknown | + + + Author + + + | Author | [employer] [employer] | + + + | Organization | [facility] | + + + | Address | Unknown | + + + | Phone | Unavailable | + + + Support + + +---------+ + | Name | Relationship | Address | Phone | + + +---------+ + | Contact,No | ECON | Unknown | | + + +---------+ + Care Team Providers + +------+ + | Care Application Systems Administrator Name | Role | Phone | + [...] | | | | (EKG) | [place] [address] | [place] | | | | | Localized | Phone: | [address] Phone: | | | | | edema | [phone] | [phone] | | | | | Procedures | Fax: | Fax: | | | | | consult | [phone] | [phone] | + +--------+ + + + + Encounter Details +--------+ + + + + | Date | Type | Department | Care Team | Description | +--------+ + + + + | 12/01/ | Initial | [facility] [place] | Latoya South, | Abnormal EKG | | 2018 | consult | Cardiology [facility] | [address] | (Primary Dx); | | | | [address] | [address], | Palpitations | | | | [address] | [place] [address] | | | | | [place] [address] | [phone] | | | | | [phone] | | | +--------+ + + + [...] may be different fro m the original. [facility]: Cardiology Initial Consult Note Name of Senior Gis Analyst: Latoya South MD Reason for Consultation: Abnormal [...] care of this patient. Primary Care Physician: Darby South MD 12/01/2017in this encounter Plan of Treatment +--------+---------+ + + + | Date | Type | Specialty | Care Team | Description | +--------+---------+ + + + | 04/06/ | Office | Rheumatology | Levi Garcia MD | | | 2017 | Visit | | [address] | | | | | | [place] | | | | | | [address] | | | | | | | | +--------+---------+ + + + | 05/10/ | Office | Neurology | Sonny Rod | | | 2017 | Visit | | MD Pam [address] | | | | | [address] | | | | | | [place] [address] | | | | | | [phone] | | | | | | | | +--------+---------+ + + + | 05/19/ | Office | Rheumatology | Levi Garcia MD | | | 2017 | Visit | | [address] | | | | | | [place] | | | | | | [address] | | | | | | | | +--------+---------+ + + + | 07/05/ | Office | Neurology | Sonny Rod | | | 2017 | Visit | | MD Pam [address] | | | | | [address] | | | | | | [place] [address] | | | | | | [phone] | | | | | | | [...] + + + + | Calculated P Marion | 35 | degrees | + + + + | Calculated R Marion | 33 | degrees | + + + + | Calculated T Marion | 27 | degrees | + + + + | Diagnosis | Normal sinus rhythmNormal ECGNo previous | | | | ECGs availablePlease refer to Providers | | | | office visit note for Providers | | | | Interpretation.Confirmed by [facility] Read | | | | Only, SHAJI Alas ([id number]), continuity editor Nathalia, | | | | John ([id number]) on 12/01/2017 1:57:40 PM | | + + + + + + + | Specimen | Performing Laboratory | + + + | | [facility] EKG [address] [place] [address] | + + + in this encounter Visit Diagnoses + + | Diagnosis | + + | Abnormal EKG - Primary | + + | Nonspecific abnormal electrocardiogram (ECG) (EKG) | + + | Palpitations | + +
--- OUTSIDE RECORDS SUMMARY | ~2018-02-27 | XMS | Clinical Summary ---
Demographics + + + | Address | [address] | | | [place] [address] | + + + | Home Phone | | + + + | Preferred Language | Unknown | + + + | Marital Status | Single | + + + | Jewish Affiliation | Unknown | + + + | Race | Unknown | + + + | Ethnic Group | Unknown | + + + Author + + + | Author | [facility] | | | and [place] | + + + | Organization | [facility] | | | [...] Team Providers + +------+ + | Care Regional Construction Manager Name | Role | Phone | + [...] | MODA | [phone] | Medica | [phone] | | | MEDICAID HMO | HEALTH [...] poornima | | | [address] | [place] [address] | + +--------+ +--------+ + +"
--- OUTSIDE RECORDS SUMMARY | ~2018-02-27 | XMS | Encounter Summary ---
Demographics + + + | Address | [address] | | | [place] [address] | + + + | Home Phone | | + + + | Preferred Language | Unknown | + + + | Marital Status | Unknown | + + + | Muslim Affiliation | Unknown | + + + | Race | Unknown | + + + | Ethnic Group | Unknown | + + + Author + + + | Author | [employer] [employer] | + + + | Organization | [facility] | + + + | Address | Unknown | + + + | Phone | Unavailable | + + + Support + + +---------+ + | Name | Relationship | Address | Phone | + + +---------+ + | Contact,No | ECON | Unknown | | + + +---------+ + Care Team Providers + +------+ + | Care Bit Tripoler Name | Role | Phone | + +------+ + | Darby Henning NP | PCP | | + +------+ + Reason for Visit + + + | Reason | Comments | + + + | Labs Only | | + + + Encounter Details +--------+ + + + + | Date | Type | Department | Care Team | Description | +--------+ + + + + | 12/03/ | Documentati | [facility] | Terri Gorman | Labs Only | | 2018 | on Only | Cardiology [facility] | [address] | | | | | [address] | | | | | | [place] | | | | | | [address] | | | | | | [phone] | | | +--------+ + + + [...] [place] | | | | | | [address] | | | | | | | | +--------+---------+ + + + | 05/10/ | Office | Neurology | Sonny Rod | | | 2017 | Visit | | MD [address] | | | | | | [address] | | | | | | [place] [address] | | | | | | [phone] | | | | | | | | +--------+---------+ + + + | 05/19/ | Office | Rheumatology | Levi Garcia MD | | | 2017 | Visit | | [address] | | | | | | [place] | | | | | | [address] | | | | | | | | +--------+---------+ + + + | 07/05/ | Office | Neurology | Sonny Rod | | | 2017 | Visit | | MD [address] | | | | | | [address] | | | | | | [place] [address] | | | | | | [phone] | | | | | | | | +--------+---------+ + + + as of this encounter Visit Diagnoses Not on filein this encounter"
--- OUTSIDE RECORDS SUMMARY | ~2018-02-27 | XMS | Encounter Summary ---
Demographics + + + | Address | [address] | | | [place] [address] | + + + | Home Phone | | + + + | Preferred Language | Unknown | + + + | Marital Status | Unknown | + + + | Anglican Affiliation | Unknown | + + + | Race | Unknown | + + + | Ethnic Group | Unknown | + + + Author + + + | Author | [employer] [employer] | + + + | Organization | [facility] | + + + | Address | Unknown | + + + | Phone | Unavailable | + + + Support + + +---------+ + | Name | Relationship | Address | Phone | + + +---------+ + | Contact,No | ECON | Unknown | | + + +---------+ + Care Team Providers + +------+ + | Care Onboarding Specialist Name | Role | Phone | + [...] | | | | | MONITOR | [place], [place] | [address] | | | | | | [address] | Phone: | | | | | | Phone: | [phone] | | | | | | [phone] | Fax: | | | | | | Fax: | [phone] | | | | | | [phone] | | +--------+--------+ + + + + Encounter Details +--------+ + + + + | Date | Type | Department | Care Team | Description | +--------+ + + + + | 12/09/ | Documentati | [facility] [place] | Latoya Gonzalez, | Cardiac Event | | 2018 | on Only | Cardiology [facility] | [address] | Monitor (7 day) | | | | [address] | [address], | | | | | [place] [address] | [place] [address] | | | | | [place] [address] | [phone] | | | | | [phone] | | | | | | | Terri Gorman | | | | | | J, PACKING MACHINE INSPECTOR | | +--------+ + + + + [...] and understood. Patient instruc maurice to call [facility] for any billing or monitor questions.in this [...] [place] | | | | | | [address] | | | | | | | | +--------+---------+ + + + | 05/10/ | Office | Neurology | Sonny Rod | | | 2017 | Visit | | MD [address] | | | | | | [address] | | | | | | [place] [address] | | | | | | [phone] | | | | | | | | +--------+---------+ + + + | 05/19/ | Office | Rheumatology | Levi Garcia MD | | | 2017 | Visit | | [address] | | | | | | [place] | | | | | | [address] | | | | | | | | +--------+---------+ + + + | 07/05/ | Office | Neurology | Sonny Rod | | | 2017 | Visit | | [address] | | | | | | [address] | | | | | | [place] [address] | | | | | | [phone] | | | | | | | | +--------+---------+ + + + as of this encounter Visit Diagnoses + + | Diagnosis | + + | Abnormal EKG | + + | Nonspecific abnormal electrocardiogram (ECG) (EKG) | + + | Palpitations | + +"
--- OUTSIDE RECORDS SUMMARY | ~2018-02-27 | XMS | Encounter Summary ---
Demographics + + + | Address | [address] | | | [place] [address] | + + + | Home Phone | | + + + | Preferred Language | Unknown | + + + | Marital Status | Unknown | + + + | Denominational Affiliation | Unknown | + + + | Race | Unknown | + + + | Ethnic Group | Unknown | + + + Author + + + | Author | [employer] [employer] | + + + | Organization | [facility] | + + + | Address | Unknown | + + + | Phone | Unavailable | + + + Support + + +---------+ + | Name | Relationship | Address | Phone | + + +---------+ + | Contact,No | ECON | Unknown | | + + +---------+ + Care Team Providers + +------+ + | Care Small Business Consultant Name | Role | Phone | + [...] | 2018 | on Only | Cardiology [facility] | [address] | | | | | [address] | | | | | | [place] | | | | | | [address] | | | | | | [phone] | | | +--------+ + + + [...] [place] | | | | | | [address] | | | | | | | | +--------+---------+ + + + | 05/10/ | Office | Neurology | Sonny Rod | | | 2017 | Visit | | MD [address] | | | | | | [address] | | | | | | [place] [address] | | | | | | [phone] | | | | | | | | +--------+---------+ + + + | 05/19/ | Office | Rheumatology | Levi Garcia MD | | | 2017 | Visit | | [address] | | | | | | [place] | | | | | | [address] | | | | | | | | +--------+---------+ + + + | 07/05/ | Office | Neurology | Sonny Rod | | | 2017 | Visit | | MD [address] | | | | | | [address] | | | | | | [place] [address] | | | | | | [phone] | | | | | | | | +--------+---------+ + + + as of this encounter Visit Diagnoses Not on filein this encounter"
--- OUTSIDE RECORDS SUMMARY | ~2018-02-27 | XMS | Encounter Summary ---
Demographics + + + | Address | [address] | | | [place] [address] | + + + | Home Phone | | + + + | Preferred Language | Unknown | + + + | Marital Status | Unknown | + + + | Jain Affiliation | Unknown | + + + | Race | Unknown | + + + | Ethnic Group | Unknown | + + + Author + + + | Author | [employer] [employer] | + + + | Organization | [facility] | + + + | Address | Unknown | + + + | Phone | Unavailable | + + + Support + + +---------+ + | Name | Relationship | Address | Phone | + + +---------+ + | Contact,No | ECON | Unknown | | + + +---------+ + Care Team Providers + +------+ + | Care Early Morning Name | Role | Phone | + +------+ + | Darby Henning NP | PCP | | + +------+ + Reason for Visit + + + | Reason | Comments | + + + | Cardiac Event | End of Study | | Monitor | | + + + Encounter Details +--------+ + + + + | Date | Type | Department | Care Team | Description | +--------+ + + + + | 12/09/ | Documentati | [facility] | [place], | Cardiac Event | | 2018 | on Only | Cardiology [facility] | [place] | Monitor (End of | | | | [address] | | Study) | | | | [facility] [place] | | | | | | [address] | | | | | | [phone] | | | +--------+ + + + [...] + as of this encounter Progress Notes Latoya Gonzalez MD - 12/09/2017 11:59 PM PST Cardiac Event Monitor Date of Event Monitor: 12/09/17 Referring Physician: [place]: Becky Alatorre : 1975 Age: 42 y.o. female INDICATIONS: Palpitations Conclusion: 1. TDs and 13 hours event monitor. Total of 949,354 beats. 2. Patient was predominantly in sinus rhythm, triggered one event that did not correlate wi th any arrhythmia. 3. Out rate was 78 bpm, minimal heart rate 52 bpm, maximal heart rate 1 58 bpm. 4. No arrhythmia was noted on this exam. in this encounter Plan of Treatment +--------+---------+ + + + | Date | Type | Specialty | Care Team | Description | +--------+---------+ + + + | 04/06/ | Office | Rheumatology | Levi Garcia MD | | | 2017 | Visit | | [address] | | | | | | [place] | | | | | | [address] | | | | | | | | +--------+---------+ + + + | 05/10/ | Office | Neurology | Sonny Rod | | | 2017 | Visit | | MD Pam [address] | | | | | [address] | | | | | | [place] [address] | | | | | | [phone] | | | | | | | | +--------+---------+ + + + | 05/19/ | Office | Rheumatology | Levi Garcia MD | | | 2017 | Visit | | [address] | | | | | | [place] | | | | | | [address] | | | | | | | | +--------+---------+ + + + | 07/05/ | Office | Neurology | Sonny Rod | | | 2017 | Visit | | MD Pam [address] | | | | | [address] | | | | | | [place] [address] | | | | | | [phone] | | | | | | | | +--------+---------+ + + + as of this encounter Visit Diagnoses + + | Diagnosis | + + | Palpitations - Primary | + +"
--- OUTSIDE RECORDS SUMMARY | ~2018-02-27 | XMS ---
Demographics + + + | Address | [address] | | | [address] | | | [place] [address] | + + + | Preferred Language | Unknown | + + + | Marital Status | Unknown | + + + | Advent Affiliation | Unknown | + + + | Race | Unknown | + + + | Ethnic Group | Unknown | + + + Author + + + | Author | [facility] | + + + | Organization | [facility] | + + + | Address | [address] | | | [place] [address] | + + + | Phone | | + + + Care Team Providers + + + + | Care Social Work Associate Name | Role | Phone | + + + + Unavailable | Unavailable | + + + + PROBLEMS +---------+ + + +--------+ + + | Type | Condition | ICD9-CM | [id number] | Onset | Condition | SNOMED | | | | Code | Code | Dates | Status | Code | +---------+ + + +--------+ + + | Problem | Hypertensi | | I10 | | Active | [id number] | | | on | | | | | | +---------+ + + +--------+ + + | Problem | Cervical | R59.0 | | | Active | 098215481 | | | lymphadeno | | | | | | | | jl | | | | | | +---------+ + + +--------+ + + | Problem | Change in | R19.4 | | | Active | 15024241 | | | bowel | | | | | | | | habits | | | | | | +---------+ + + +--------+ + + | Problem | Dizziness | | R42 | | Active | 994137399 | +---------+ + + +--------+ + + | Problem | Pain of | R10.10 | | | Active | 76800148 | | | upper | | | | | | | | abdomen | | | | | | +---------+ + + +--------+ + + | Problem | Back pain | | M54.9 | | Active | 227095958 | +---------+ + + +--------+ + + | Problem | Pharyngiti | | J02.9 | | Active | 910391762 | | | s | | | | | | +---------+ + + +--------+ + + | Problem | Eustachian | H69.80 | | | Active | 81467569 | | | tube | | | | | | | | dysfunctio | | | | | | | | n | | | | | | +---------+ + + +--------+ + + | Problem | Sánchez | B27.90 | | | Active | 861097210 | | | Waller | | | | | | | | infection | | | | | | +---------+ + + +--------+ + + | Problem | History of | Z87.19 | | | Active | 538028723 | | | stomach | | | | | | | | ulcers | | | | | | +---------+ + + +--------+ + + | Problem | Acute | | R10.13 | | Active | 94262787 | | | epigastric | | | | | | | | pain | | | | | | +---------+ + + +--------+ + + | Problem | GERD | | K21.9 | | Active | 589240524 | | | (gastroeso | | | | | | | | phageal | | | | | | | | reflux | | | | | | | | disease) | | | | | | +---------+ + + +--------+ + + | Problem | Fibromyalg | | M79.7 | | Active | 397967997 | | | ia | | | | | | +---------+ + + +--------+ + + | Problem | History of | Z87.19 | | | Active | 201483177 | | | hiatal | | | | | | | | hernia | | | | | | +---------+ + + +--------+ + + | Problem | Asthma | | J45.909 | | Active | 431017975 | +---------+ + + +--------+ + + ALLERGIES Unknown Allergies SOCIAL HISTORY No smoking Hx information available PLAN OF CARE VITAL SIGNS MEDICATIONS Unknown Medications RESULTS No Results PROCEDURES No Known procedures IMMUNIZATIONS No Known Immunizations"
--- OUTSIDE RECORDS SUMMARY | ~2018-02-27 | XMS ---
Demographics + + + | Address | [address] | | | [address] | | | [place] [address] | + + + | Preferred Language | Unknown | + + + | Marital Status | Unknown | + + + | Yazidism Affiliation | Unknown | + + + | Race | Unknown | + + + | Ethnic Group | Unknown | + + + Author + + + | Author | [facility] | + + + | Organization | [facility] | + + + | Address | [address] | | | [place] [address] | + + + | Phone | | + + + Care Team Providers + + + + | Care Emergency Medicine Physician Assistant Name | Role | Phone | + + + + Unavailable | Unavailable | + + + + PROBLEMS +---------+ + + +--------+ + + | Type | Condition | ICD9-CM | [id number] | Onset | Condition | SNOMED | | | | Code | Code | Dates | Status | Code | +---------+ + + +--------+ + + | Problem | Cervical | R59.0 | | | Active | 990100790 | | | lymphadeno | | | | | | | | jl | | | | | | +---------+ + + +--------+ + + | Problem | Back pain | | M54.9 | | Active | 376902033 | +---------+ + + +--------+ + + | Problem | Pharyngiti | | J02.9 | | Active | 528241959 | | | s | | | | | | +---------+ + + +--------+ + + | Problem | Acute | | J01.90 | | Active | 10526644 | | | sinusitis | | | | | | +---------+ + + +--------+ + + | Problem | Otitis | H60.90 | | | Active | 7451881 | | | externa | | | | | | +---------+ + + +--------+ + + | Problem | Eustachian | H69.80 | | | Active | 80699029 | | | tube | | | | | | | | dysfunctio | | | | | | | | n | | | | | | +---------+ + + +--------+ + + | Problem | Sánchez | B27.90 | | | Active | 823759746 | | | Waller | | | | | | | | infection | | | | | | +---------+ + + +--------+ + + | Problem | Dizziness | | R42 | | Active | 439070750 | +---------+ + + +--------+ + + | Problem | Pain of | R10.10 | | | Active | 28470307 | | | upper | | | | | | | | abdomen | | | | | | +---------+ + + +--------+ + + | Problem | GERD | | K21.9 | | Active | 484306963 | | | (gastroeso | | | | | | | | phageal | | | | | | | | reflux | | | | | | | | disease) | | | | | | +---------+ + + +--------+ + + | Problem | History of | Z87.19 | | | Active | 873263218 | | | hiatal | | | | | | | | hernia | | | | | | +---------+ + + +--------+ + + | Problem | Fibromyalg | | M79.7 | | Active | 560152464 | | | ia | | | | | | +---------+ + + +--------+ + + | Problem | Asthma | | J45.909 | | Active | 840031353 | +---------+ + + +--------+ + + | Problem | History of | Z87.19 | | | Active | 256763998 | | | stomach | | | | | | | | ulcers | | | | | | +---------+ + + +--------+ + + | Problem | Hypertensi | | I10 | | Active | 27863835 | | | on | | | | | | +---------+ + + +--------+ + + | Problem | Acute | | R10.13 | | Active | 25528368 | | | epigastric | | | | | | | | pain | | | | | | +---------+ + + +--------+ + + | Problem | Change in | R19.4 | | | Active | 07060601 | | | bowel | | | | | | | | habits | | | | | | +---------+ + + +--------+ + + ALLERGIES + + + + +--------+ | Substance | Reaction | Event Type | Date | Status | + + + + +--------+ | Tramadol HCl | rash | Drug Allergy | May, | Active | + + + + +--------+ | amoxicillin | rash | Drug Allergy | May, | Active | + + + + +--------+ | Vicodin | hives | Drug Allergy | May, | Active | + + + + +--------+ | Lyrica | lips swelling | Drug Allergy | May, | Active | + + + + +--------+ | Toradol | Itch | Non Drug | May, | Active | | | | Allergy | | | + + + + +--------+ SOCIAL HISTORY No smoking Hx information available PLAN OF CARE + +---------+ | Activity | Details | + +---------+ +---+ | | +---+ + + + | Follow Up | 2 Months Reason:null | + + + VITAL SIGNS + + + + | Height | 62 in | 2017-06-23 | + + + + | Weight | 198 lbs | 2017-06-23 | + + + + | BMI | 36.21 kg/m2 | 2017-06-23 | + + + + | Temperature | 97.8 degrees Fahrenheit | 2017-06-23 | + + + + | Heart Rate | 71 /min | 2017-06-23 | + + + + | Blood pressure systolic | 137 mm Hg | 2017-06-23 | + + + + | Blood pressure diastolic | 73 mm Hg | 2017-06-23 | + + + + MEDICATIONS + + +---------+ + + + +--------+ | Medicati | Instruct | Dosage | Frequenc | Start | End Date | Duration | Status | | on | ions | | y | Date | | | | + + +---------+ + + + +--------+ | Albutero | Inhalati | 2 puffs | | 04 Jul, | | 1 month | Active [...] + +---------+ + + + +--------+ | Omeprazo | Orally | 1 | 24h | May, | | 90 days | Active | | le 20 mg | Once a | capsule | | 2016 | | | | | | day | | | | | | | + + +---------+ + + + +--------+ RESULTS No Results PROCEDURES + + + + + | Procedure | Date Ordered | Related Diagnosis | Body Site | + + + + + | Est Level III | Jun 23, 2017 | | | | Intermediate | | | | + + + + + IMMUNIZATIONS No Known Immunizations"
--- OUTSIDE RECORDS SUMMARY | ~2018-02-27 | XMS ---
Demographics + + + | Address | [address] | | | [address] | | | [place] [address] | + + + | Preferred Language | Unknown | + + + | Marital Status | Unknown | + + + | Jew Affiliation | Unknown | + + + | Race | Unknown | + + + | Ethnic Group | Unknown | + + + Author + + + | Author | [facility] | + + + | Organization | [facility] | + + + | Address | [address] | | | [place] [address] | + + + | Phone | | + + + Care Team Providers + + + + | Care Warm In Name | Role | Phone | + + + + Unavailable | Unavailable | + + + + PROBLEMS +---------+ + + +--------+ + + | Type | Condition | ICD9-CM | [id number] | Onset | Condition | SNOMED | | | | Code | Code | Dates | Status | Code | +---------+ + + +--------+ + + | Problem | Cervical | R59.0 | | | Active | 672706820 | | | lymphadeno | | | | | | | | jl | | | | | | +---------+ + + +--------+ + + | Problem | Back pain | | M54.9 | | Active | 929399422 | +---------+ + + +--------+ + + | Problem | Pharyngiti | | J02.9 | | Active | 633537153 | | | s | | | | | | +---------+ + + +--------+ + + | Problem | Acute | | J01.90 | | Active | 89092552 | | | sinusitis | | | | | | +---------+ + + +--------+ + + | Problem | Otitis | H60.90 | | | Active | 4944731 | | | externa | | | | | | +---------+ + + +--------+ + + | Problem | Eustachian | H69.80 | | | Active | 91945031 | | | tube | | | | | | | | dysfunctio | | | | | | | | n | | | | | | +---------+ + + +--------+ + + | Problem | Sánchez | B27.90 | | | Active | 814684429 | | | Waller | | | | | | | | infection | | | | | | +---------+ + + +--------+ + + | Problem | Dizziness | | R42 | | Active | 832601046 | +---------+ + + +--------+ + + | Problem | Pain of | R10.10 | | | Active | 69972450 | | | upper | | | | | | | | abdomen | | | | | | +---------+ + + +--------+ + + | Problem | GERD | | K21.9 | | Active | 287760196 | | | (gastroeso | | | | | | | | phageal | | | | | | | | reflux | | | | | | | | disease) | | | | | | +---------+ + + +--------+ + + | Problem | History of | Z87.19 | | | Active | 513092932 | | | hiatal | | | | | | | | hernia | | | | | | +---------+ + + +--------+ + + | Problem | Fibromyalg | | M79.7 | | Active | 183768522 | | | ia | | | | | | +---------+ + + +--------+ + + | Problem | Asthma | | J45.909 | | Active | 891806569 | +---------+ + + +--------+ + + | Problem | History of | Z87.19 | | | Active | 233702933 | | | stomach | | | | | | | | ulcers | | | | | | +---------+ + + +--------+ + + | Problem | Hypertensi | | I10 | | Active | 25706183 | | | on | | | | | | +---------+ + + +--------+ + + | Problem | Acute | | R10.13 | | Active | 43621199 | | | epigastric | | | | | | | | pain | | | | | | +---------+ + + +--------+ + + | Problem | Change in | R19.4 | | | Active | 60825881 | | | bowel | | | | | | | | habits | | | | | | +---------+ + + +--------+ + + ALLERGIES + + + + +--------+ | Substance | Reaction | Event Type | Date | Status | + + + + +--------+ | Tramadol HCl | rash | Drug Allergy | Apr, | Active | + + + + +--------+ | amoxicillin | rash | Drug Allergy | Apr, | Active | + + + + +--------+ | Vicodin | hives | Drug Allergy | Apr, | Active | + + + + +--------+ | Lyrica | lips swelling | Drug Allergy | Apr, | Active | + + + + +--------+ | Toradol | Itch | Non Drug | Apr, | Active | | | | Allergy | | | + + + + +--------+ SOCIAL HISTORY No smoking Hx information available PLAN OF CARE + +---------+ | Activity | Details | + +---------+ +---+ | | +---+ + + + | Follow Up | prn Reason:null | + + + VITAL SIGNS + + + + | Height | 62 in | 2017-05-19 | + + + + | Weight | 197.8 lbs | 2017-05-19 | + + + + | BMI | 36.17 kg/m2 | 2017-05-19 | + + + + | Temperature | 97.8 degrees Fahrenheit | 2017-05-19 | + + + + | Heart Rate | 87 /min | 2017-05-19 | + + + + | Blood pressure systolic | 142 mm Hg | 2017-05-19 | + + + + | Blood pressure diastolic | 88 mm Hg | 2017-05-19 | + + + + MEDICATIONS + + + + + + + +--------+ | Medicati | Instruct | Dosage | Frequenc | Start | End Date | Duration | Status | | on | ions | | y | Date | | | | + + + + + + + +--------+ | Ciproflo | Otic | 4 drops | 12h | | | 10 | Active | | xacin-De | Twice a | into | | | | day(s) | | | xamethas | day | affected | | | | | | | one | | ear | | | | | | | 0.3-0.1 | | | | | | | | | % | | | | | | | | + + + + + + + +--------+ | Albutero | Inhalati | 2 puffs | | 04 Oct, | | 1 month | Active | [...] | | | | | + + + + + + + +--------+ | Nexium | Orally | 1 | 24h | | | | Active | | 20 MG | Once a | capsule | | | | | | | | day | | | | | | | + + + + + + + +--------+ | Azithrom | Orally | 2 | 24h | | May, | 5 day(s) | Active | | ycin 250 | Once a | tablets | | | 2016 | | | | MG | day | on the | | | | | | | | | first | | | | | | | | | day, | | | | | | | | | then 1 | | | | | | | | | tablet | | | | | | | | | da | | | | | | + + + + + + + +--------+ RESULTS No Results PROCEDURES + + + + + | Procedure | Date Ordered | Related Diagnosis | Body Site | + + + + + | Est Level III | May 19, 2017 | | | | Intermediate | | | | + + + + + IMMUNIZATIONS No Known Immunizations"
--- OUTSIDE RECORDS SUMMARY | ~2018-02-27 | XMS ---
Demographics + + + | Address | [address] | | | [address] | | | [place] [address] | + + + | Preferred Language | Unknown | + + + | Marital Status | Unknown | + + + | Adventism Affiliation | Unknown | + + + | Race | Unknown | + + + | Ethnic Group | Unknown | + + + Author + + + | Author | [facility] | + + + | Organization | [facility] [address] | + + + | Address | [address] | | | [place] [address] | + + + | Phone | | + + + Care Team Providers + + + + | Care Safety Counselor Name | Role | Phone | + + + + Unavailable | Unavailable | + + + + PROBLEMS +---------+ + + +--------+ + + | Type | Condition | ICD9-CM | [id number] | Onset | Condition | SNOMED | | | | Code | Code | Dates | Status | Code | +---------+ + + +--------+ + + | Problem | Cervical | R59.0 | | | Active | 527034968 | | | lymphadeno | | | | | | | | jl | | | | | | +---------+ + + +--------+ + + | Problem | Back pain | | M54.9 | | Active | 195782200 | +---------+ + + +--------+ + + | Problem | Pharyngiti | | J02.9 | | Active | 186178828 | | | s | | | | | | +---------+ + + +--------+ + + | Problem | Acute | | J01.90 | | Active | 76907360 | | | sinusitis | | | | | | +---------+ + + +--------+ + + | Problem | Otitis | H60.90 | | | Active | 2633786 | | | externa | | | | | | +---------+ + + +--------+ + + | Problem | Eustachian | H69.80 | | | Active | 76885478 | | | tube | | | | | | | | dysfunctio | | | | | | | | n | | | | | | +---------+ + + +--------+ + + | Problem | Sánchez | B27.90 | | | Active | 364708588 | | | Waller | | | | | | | | infection | | | | | | +---------+ + + +--------+ + + | Problem | Dizziness | | R42 | | Active | 125595548 | +---------+ + + +--------+ + + | Problem | Pain of | R10.10 | | | Active | 23501107 | | | upper | | | | | | | | abdomen | | | | | | +---------+ + + +--------+ + + | Problem | GERD | | K21.9 | | Active | 437218761 | | | (gastroeso | | | | | | | | phageal | | | | | | | | reflux | | | | | | | | disease) | | | | | | +---------+ + + +--------+ + + | Problem | History of | Z87.19 | | | Active | 574384915 | | | hiatal | | | | | | | | hernia | | | | | | +---------+ + + +--------+ + + | Problem | Fibromyalg | | M79.7 | | Active | 891626985 | | | ia | | | | | | +---------+ + + +--------+ + + | Problem | Asthma | | J45.909 | | Active | 482410592 | +---------+ + + +--------+ + + | Problem | History of | Z87.19 | | | Active | 544290355 | | | stomach | | | | | | | | ulcers | | | | | | +---------+ + + +--------+ + + | Problem | Hypertensi | | I10 | | Active | 10965271 | | | on | | | | | | +---------+ + + +--------+ + + | Problem | Acute | | R10.13 | | Active | 62209261 | | | epigastric | | | | | | | | pain | | | | | | +---------+ + + +--------+ + + | Problem | Change in | R19.4 | | | Active | 07261953 | | | bowel | | | | | | | | habits | | | | | | +---------+ + + +--------+ + + ALLERGIES Unknown Allergies SOCIAL HISTORY No smoking Hx information available PLAN OF CARE + +---------+ | Activity | Details | + +---------+ +---+ | | +---+ + + + | Pending Test | Rheumatoid Factor | + + + VITAL SIGNS MEDICATIONS Unknown Medications RESULTS No Results PROCEDURES No Known procedures IMMUNIZATIONS No Known Immunizations"
--- OUTSIDE RECORDS SUMMARY | ~2018-02-27 | XMS | Encounter Summary ---
Demographics + + + | Address | [address] | | | [place] [address] | + + + | Home Phone | | + + + | Preferred Language | Unknown | + + + | Marital Status | Unknown | + + + | Adventist Affiliation | Unknown | + + + | Race | Unknown | + + + | Ethnic Group | Unknown | + + + Author + + + | Author | [facility] | + + + | Organization | [facility] | + + + | Address | Unknown | + + + | Phone | Unavailable | + + + Support + + +---------+ + | Name | Relationship | Address | Phone | + + +---------+ + | Contact,No | ECON | Unknown | | + + +---------+ + Care Team Providers + +------+ + | Care Hotel Reservation Agent Name | Role | Phone | + [...] | | Study) | | | | [facility] [place] | | | | | | [address] | | | | | | [phone] | | | +--------+ + + + [...] Date of Event Monitor: 12/09/17 Referring Physician: Cochran: Becky Alatorre : 1975 Age: 42 y.o. [...] [place] | | | | | | [address] | | | | | | | | +--------+---------+ + + + | 05/10/ | Office | Neurology | Sonny Rod | | | 2017 | Visit | | MD [address] | | | | | [address] | | | | | | [place] [address] | | | | | | [phone] | | | | | | | | +--------+---------+ + + + | 05/19/ | Office | Rheumatology | Levi Garcia MD | | | 2017 | Visit | | [address] | | | | | | [place] | | | | | | [address] | | | | | | | | +--------+---------+ + + + | 07/05/ | Office | Neurology | Sonny Rod | | | 2017 | Visit | | MD Pam [address] | | | | | [address] | | | | | | [place] [address] | | | | | | [phone] | | | | | | | | +--------+---------+ + + + as of this encounter Visit Diagnoses + + | Diagnosis | + + | Palpitations - Primary | + +"
[~2018-02-27 20:35] MED LIST: ACETAMINOPHEN-1 EAC1 PO; AMOXICILLIN500 MG PO; AZITHROMYCIN250 MG PO; BACTRIM DS TAB1 EACH PO; BENADRYL25 MG PO; CEPHALEXIN500 MG PO; CIPRO500 MG PO; CRANBERRY CONC1 EAC1 PO; CYMBALTA60 MG PO; FLEXERIL10 MG PO; FLOMAX0.4 MG PO; GUAIATUSSIN AC10 ML PO; IBUPROFEN800 MG PO; KEFLEX500 MG PO; MELOXICAM15 MG PO; METHOCARBAMOL500 MG PO; OMEPRAZOLE20 MG PO; PERCOCET 10-321 EACH PO; PERCOCET 5-3251 EACH PO; POTASSIUM CHLO20 ME2 PO; PROMETH-CODEIN 65 ML PO; PROMETHAZINE-COD5 ML PO; PYRIDIUM200 MG PO; SEPTRA DS TABL1 EACH PO; TRAMADOL HCL50 MG PO; VENTOLIN HFA18 GM INH; ZESTORETIC 20-251 EA PO; ZOFRAN4 MG PO
[2018-02-27] MEDS ORDERED: FLAGYL500 MG PO (21:08)
[2018-03-23] MEDS ORDERED: CYCLOBENZAPRINE10 MG PO (10:30)
[2018-03-23] MEDS ORDERED: PSEUDOEPHEDRINE30 MG PO (10:31)
[2018-03-23] MEDS ORDERED: IBUPROFEN800 MG PO (10:32)
== END 2018-02-27 23:49 | disposition home or self-care (01) ==
LOC: ED 20:35
DX: R11.2 Nausea with vomiting, unspecified (principal); K21.9 Gastro-esophageal reflux disease without esophagitis; J45.909 Unspecified asthma, uncomplicated; Z87.442 Personal history of urinary calculi; Z88.8 Allergy status to other drugs, medicaments and biological substances; Z88.5 Allergy status to narcotic agent; Z79.899 Other long term (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
CPT/HCPCS: 80053; 81001; 85025; 99283

== ENCOUNTER 2018-03-25 07:05 | Day surgery (SDC) | payer OTHER ==
[~2018-03-25] VITALS: Ht 157.5 cm; Wt 92.1 kg
[~2018-03-25 07:05] MED LIST changes: +CYCLOBENZAPRINE10 MG PO; +FLAGYL500 MG PO; +PSEUDOEPHEDRINE30 MG PO
--- NOTE | 2018-03-25 10:23 | NUR ---
03/25/18 Jillian3 Nely Leon 1018-PATIENT ARRIVED TO PACU ON 6L MASK O2 SAT 100% PATIENT NONAROUSABLE ORAL AIRWAY IN PLACE. RN DOING JAW THRUST TO MAINTAIN OPEN AIRWAY. RR EVEN. 3 LAP SITES TO ABDOMEN CDI. TAO PAD IN PLACE. SR
--- NOTE | 2018-03-25 11:37 | NUR ---
ICED WATER AND JEAMELIAO GIVEN. CALL LIGHT W/IN REACH. SPOUSE @ BS.
--- NOTE | 2018-03-25 12:30 | NUR ---
PT CALLED, IN TO ROOM. PT REQUESTING HELP TO RESTROOM. IV SL, PT AMBULATED TO BATHROOM. TOLERATED WELL. VOID 275 MLS. PT ASSISTED BACK TO BED. JELLO GIVEN PER REQUEST. TOLERATED WELL. NO FURTHER NEEDS, CALL LIGHT IN REACH.
[2018-03-25] MEDS ORDERED: PERCOCET 5-3251 EACH PO (12:39)
--- NOTE | 2018-03-25 13:40 | NUR ---
PT UP TO BR W/SPOUSE MULTIPLE TIMES AND MOVES AROUND THE DEPARTMENT WELL. PT DENIES DIZZINESS. PT REQ DC HOME.
--- NOTE | 2018-03-25 19:44 | OR ---
[facility] [address] [place], [place] [address] Signed DATE OF OPERATION: 03/25/2018 SURGEON: Berry Gagnon MD Patient of Dr. Gagnon. PREOPERATIVE DIAGNOSIS: Pelvic pain, previous tubal ligation. POSTOPERATIVE DIAGNOSIS: Pelvic pain, previous tubal ligation plus bilateral pelvic adhesions. PROCEDURE: Laparoscopic lysis of adhesions with opportunistic bilateral salpingectomy. MAIL ORDER SORTER: Dr. Agosto. ANESTHESIA: General. ESTIMATED BLOOD LOSS: 10 mL. SPECIMEN: Bilateral fallopian tubes. DRAINS: None. FINDINGS: Cervix thick, closed. Uterine cavity sounded to 7 cm. There was a normal sized uterus. Anterior cul-de-sac was free of any endometriosis or adhesions. Posterior cul-de-sac was free of any endometriosis or adhesions. The left tube was of normal length and normal pink fimbriated end. The patient had previous tubal ligation, there was no obvious area of missing or scar tube on this side. Ovary was normal size and shape without any evidence of endometriosis or adhesions. The upper left pelvic sidewall had several broad filmy adhesions to the descending colon and also involving the left round ligament, which pulled the left round ligament anteriorly and superiorly. However, it did not involve the tube or ovary. Right tube had normal-appearing fimbriated end. Electronically Signed By: BERRY GAGNON MD 03/25/18 1944 PATIENT NAME: ANTIONETTE ARIAS OPERATIVE REPORT DATE OF : 73 REPORT #: [id number] PHYSICIAN: BERRY GAGNON MD PCP: ELEN MALAGON REPORT IS CONFIDENTIAL AND NOT TO BE RELEASED WITHOUT AUTHORIZATION [facility] [address] [place], [place] [address] Signed Midportion of the tube was missing from previous tubal ligation. There was no adhesions present. The right ovary is normal size and shape without any evidence of endometriosis or adhesions. There was evidence of corpus luteum cyst on this side, otherwise appeared normal. On the upper right pelvic sidewall were again some filmy adhesions elevating the ascending colon anteriorly. The patient had a previous appendectomy, but otherwise the colon appeared normal except for being slightly elevated. There was no other masses seen. DESCRIPTION OF PROCEDURE: The patient was brought into the operating room, placed in supine position. After adequate general anesthesia was obtained, was placed on dorsal lithotomy position, prepped and draped in usual sterile fashion. Martino catheter was placed in the bladder. Weighted speculum was placed in the vagina and the anterior lip of the cervix grasped with an Allis clamp. Uterine cavity was sounded to 7 cm and cervix serially dilated. A Hulka clamp was carefully introduced in the endocervical canal and attached to the anterior lip of the cervix. The Allis clamp and weighted speculum were removed. Attention was then drawn to the abdomen. A small infraumbilical skin incision was made through a previous surgical focal scar after injecting the area with 0.5% Marcaine. Subcutaneous tissue was then dissected with Metzenbaum scissors. The fascia identified and grasped with hemostats, elevated and nicked with Metzenbaum scissors and extended in transverse fashion using Metzenbaum scissors. Finger dissection was used to separate the muscle and open the peritoneum. An S retractor was inserted into the incision and spun 360 degree fashion showing no obvious adhesions or masses and then showed good introduction into the abdominal cavity. The Hulka clamp was then inserted into the incision alongside the S clamp. Retention stitch of 0 Vicryl suture placed above and below the incision. Then, the Herb cannula and sleeve entered the abdomen under direct visualization. The S retractor was removed. Retention stitches tied to the sleeve and balloon of the sleeve filled with air. Trocar was removed and laparoscope with video attachment entered the abdomen under direct visualization. Carbon dioxide was used as distending medium. The above findings were noted. Two 5 mm ports were placed, 1 on the left and 1 the right approximately 10 cm lateral to midline and just below the level of the umbilicus. Each time the area was transilluminated to avoid any vessels, the area was injected with 0.5% Marcaine and then a small skin incision made with a scalpel. A bladed 5-mm trocar and sleeve entered the abdomen under direct visualization. The trocar was removed then the balloon of the sleeve filled with air to help keep the sleeve in place. Blunt instruments were placed through both sides and all findings were confirmed. LigaSure bipolar cautery forceps were then placed through the lateral sleeve and the two distal segments of fallopian tube were removed and each tube pulled out through the 5 mm sleeve. Both dissection sites were examined and noted to have good hemostasis. The left pelvic sidewall filmy adhesions were then observed. Laparoscopic scissors were used to cut through the filmy Electronically Signed By: BERRY GAGNON MD 03/25/181943 PATIENT NAME: ANTIONETTE ARIAS OPERATIVE REPORT DATE OF : 73 REPORT #: [id number] PHYSICIAN: BERRY GAGNON MD PCP: ELEN MALAGON REPORT IS CONFIDENTIAL AND NOT TO BE RELEASED WITHOUT AUTHORIZATION [facility] [address] [place] [address] [place], [place] [address] Signed adhesions close to the sidewall and away from the bowel. Care was taken to only cut an avascular areas and blunt dissection was also used to pull the colon away from the sidewall and to separate the left round ligament from the bowel adhesions. With this I dropped down the round ligament in more anatomic position. The area was observed and noted to have good hemostasis except for slight a capillary blood, but no active bleeding noted. The filmy adhesions on the right side were similarly taken down using the laparoscopic scissors, grasping the colon with blunt graspers and gently placing the adhesions on stretch and cutting the avascular adhesions close to the side wall to avoid bowel and avoid any vessels. Only the clear spaces were seen and only the clear peritoneal spaces were cut and some blunt dissection also done dropping the colon down further. At this point, the entire pelvis was examined, noted to have good hemostasis. Because of the raw areas decided to treat both dissection areas with Evicel. This was placed through the 5 mm port and a long syringe tip and this was dripped on the area of adhesiolysis bilaterally. Good hemostasis was noted. At this point, the gas was allowed to escape. The areas were examined under low pressure. No bleeding was noted, so the rest of the gas was allowed to escape. All instruments were removed and the sleeves were all removed. Infraumbilical incision was closed using running stitch of 0 Vicryl suture. The two retention stitches were tied together for further support of the fascia. The three skin incisions were closed using subcuticular stitches of 4-0 Vicryl suture. The Hulka clamp was removed and the cervix noted to have good hemostasis. Martino catheter was also removed. The patient tolerated the procedure well and went to recovery room in good condition. Sponge, needle and instrument count correct at the end of the procedure. Berry Gagnon MD MJB/MODL /[id number] Copies: ~ Electronically Signed By: BERRY GAGNON MD 03/25/18 1944 PATIENT NAME: ANTIONETTE ARIAS OPERATIVE REPORT DATE OF : 73 REPORT #: [id number] PHYSICIAN: BERRY GAGNON MD PCP: ELEN MALAGON REPORT IS CONFIDENTIAL AND NOT TO BE RELEASED WITHOUT AUTHORIZATION
== END 2018-03-25 13:55 | disposition home or self-care (01) ==
LOC: DS 07:05
PROVIDERS: General Practice
PROC: 0UT74ZZ Resection of Bilateral Fallopian Tubes, Percutaneous Endoscopic Approach (ICD-10-PCS; principal; 2018-03-25 08:30)
DX: R10.2 Pelvic and perineal pain (principal); F41.9 Anxiety disorder, unspecified; M79.7 Fibromyalgia; M19.90 Unspecified osteoarthritis, unspecified site; F43.10 Post-traumatic stress disorder, unspecified; K21.9 Gastro-esophageal reflux disease without esophagitis; M41.9 Scoliosis, unspecified; G47.33 Obstructive sleep apnea (adult) (pediatric); E66.01 Morbid (severe) obesity due to excess calories; K58.9 Irritable bowel syndrome, unspecified; Z98.51 Tubal ligation status; Z87.891 Personal history of nicotine dependence; Z88.0 Allergy status to penicillin; Z88.5 Allergy status to narcotic agent; Z88.1 Allergy status to other antibiotic agents; Z88.8 Allergy status to other drugs, medicaments and biological substances; Z68.37 Body mass index [BMI] 37.0-37.9, adult
CPT/HCPCS: 00840; 88302; J0330; J1100; J1885; J2250; J2405; J2704; J2765; J3010; J7120

== ENCOUNTER 2018-04-30 16:26 | Emergency (ER) | payer OTHER ==
[~2018-04-30] VITALS: Ht 157.5 cm; Wt 94.3 kg
[2018-04-30] MEDS ORDERED: OMEPRAZOLE20 MG PO (17:45)
[2018-04-30] MEDS ORDERED: PERCOCET 5-3251 EACH PO (21:56)
== END 2018-04-30 22:05 | disposition home or self-care (01) ==
LOC: ED 16:26
DX: S20.219A Contusion of unspecified front wall of thorax, initial encounter (principal); M54.2 Cervicalgia; M54.9 Dorsalgia, unspecified; K21.9 Gastro-esophageal reflux disease without esophagitis; Z87.891 Personal history of nicotine dependence; Z88.8 Allergy status to other drugs, medicaments and biological substances; Z88.6 Allergy status to analgesic agent; Z88.0 Allergy status to penicillin; Z88.5 Allergy status to narcotic agent; Z79.899 Other long term (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; Y04.8XXA Assault by other bodily force, initial encounter
CPT/HCPCS: 71046; 72040; 72070; 72100; 80053; 84703; 85025; 99283

== ENCOUNTER 2019-11-04 05:48 | Day surgery (SDC) | payer OTHER ==
[~2019-11-04] VITALS: Ht 157.5 cm; Wt 84.4 kg
== END 2019-11-04 08:37 | disposition home or self-care (01) ==
LOC: DS 05:48 → OPS 05:48 → DS 06:45 → OPS 08:37
PROC: 0DBB8ZX Excision of Ileum, Via Natural or Artificial Opening Endoscopic, Diagnostic (ICD-10-PCS; principal; 2019-11-04)
PROC: 0DBE8ZX Excision of Large Intestine, Via Natural or Artificial Opening Endoscopic, Diagnostic (ICD-10-PCS; 2019-11-04)
DX: R10.84 Generalized abdominal pain (principal); R14.0 Abdominal distension (gaseous); K59.00 Constipation, unspecified; K21.9 Gastro-esophageal reflux disease without esophagitis; M19.90 Unspecified osteoarthritis, unspecified site; F41.9 Anxiety disorder, unspecified; F43.10 Post-traumatic stress disorder, unspecified; G47.30 Sleep apnea, unspecified; G47.33 Obstructive sleep apnea (adult) (pediatric); G43.909 Migraine, unspecified, not intractable, without status migrainosus; F32.9 Major depressive disorder, single episode, unspecified; Z79.899 Other long term (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; Z88.0 Allergy status to penicillin; Z88.5 Allergy status to narcotic agent; Z88.8 Allergy status to other drugs, medicaments and biological substances
CPT/HCPCS: 93005; 93010; J2704; J7121

== ENCOUNTER 2021-03-28 13:18 | Emergency (ER) | payer OTHER ==
[~2021-03-28] VITALS: Ht 157.5 cm; Wt 84.4 kg
[~2021-03-28 13:18] MED LIST changes: +ACETAMINOPHEN500 MG PO; +BENADRYL ALLERG25 MG PO; +COLACE100 MG PO; +FAMOTIDINE20 MG PO; +LORATADINE10 MG PO; +ZYRTEC-D TABLE1 EACH PO
[2021-03-28] MEDS ORDERED: NAPROXEN500 MG PO (20:12)
[2021-03-28] MEDS ORDERED: METHYLPREDNISOLO4 M1 PO (20:12)
== END 2021-03-28 20:37 | disposition home or self-care (01) ==
LOC: ED 13:18
DX: M54.31 Sciatica, right side (principal); K21.9 Gastro-esophageal reflux disease without esophagitis; J45.909 Unspecified asthma, uncomplicated; F43.10 Post-traumatic stress disorder, unspecified; Z87.891 Personal history of nicotine dependence; Z88.8 Allergy status to other drugs, medicaments and biological substances; Z88.6 Allergy status to analgesic agent; Z88.0 Allergy status to penicillin; Z88.5 Allergy status to narcotic agent; Z79.899 Other long term (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
CPT/HCPCS: 72131; 80048; 81001; 84703; 85025; 85379; 99284-25

== ENCOUNTER 2022-09-08 09:23 | Emergency (ER) | payer OTHER ==
[~2022-09-08] VITALS: Ht 157.5 cm; Wt 84.4 kg
[~2022-09-08 09:23] MED LIST changes: +METHYLPREDNISOLO4 M1 PO; +NAPROXEN500 MG PO
[2022-09-08] MEDS ORDERED: CYCLOBENZAPRINE10 MG PO (12:57)
[2022-09-08] MEDS ORDERED: METHYLPREDNISOLO4 M1 PO (12:57)
[2022-09-08] MEDS ORDERED: CEPHALEXIN500 M1 PO (12:57)
== END 2022-09-08 13:13 | disposition home or self-care (01) ==
LOC: ED 09:23
DX: N39.0 Urinary tract infection, site not specified (principal); M54.41 Lumbago with sciatica, right side; K21.9 Gastro-esophageal reflux disease without esophagitis; J45.909 Unspecified asthma, uncomplicated; Z87.891 Personal history of nicotine dependence; Z88.0 Allergy status to penicillin; Z88.5 Allergy status to narcotic agent; Z88.8 Allergy status to other drugs, medicaments and biological substances
CPT/HCPCS: 81001; 87088; 99283; A9270; J8540

== ENCOUNTER 2024-06-08 14:48 | Emergency (ER) | payer OTHER ==
[~2024-06-08] VITALS: Ht 157.5 cm; Wt 100.5 kg
[2024-06-08] MEDS ORDERED: ondansetron HCL 4 MG/2 ML VIAL IV ONE (15:15)
[2024-06-08] MEDS ORDERED: ONDANSETRON 4 MG TAB ODT SL ONE (15:15)
[2024-06-08] MEDS ORDERED: LIDOCAINE & ANTACID 35 ML BTL PO ONE ×2 (15:15→16:30)
[2024-06-08] MEDS ORDERED: PANTOPRAZOLE SODIUM 40 MG/10 ML VIAL IV ONE (15:15)
[2024-06-08] MEDS ORDERED: SODIUM CHLORIDE 0.9% 1,000 ML IV ONE (15:15)
[2024-06-08 17:12] VITALS: BP 160/90
== END 2024-06-08 17:12 | disposition home or self-care (01) ==
LOC: ED 14:48
DX: K20.90 Esophagitis, unspecified without bleeding (principal); Z88.0 Allergy status to penicillin; Z88.5 Allergy status to narcotic agent; Z88.8 Allergy status to other drugs, medicaments and biological substances; Z87.891 Personal history of nicotine dependence; Z79.899 Other long term (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
CPT/HCPCS: 80053; 83690; 85025; 99283; A9270

== ENCOUNTER 2024-07-01 16:14 | Emergency (ER) | payer OTHER ==
[~2024-07-01] VITALS: Ht 157.5 cm; Wt 96.0 kg
[~2024-07-01 16:14] MED LIST changes: +BENZONATATE100 MG PO; +CEPHALEXIN500 M1 PO; +LIDOCAINE HCL100 ML MT; +ONDANSETRON HCL8 MG PO; +ONDANSETRON ODT8 MG PO; +PANTOPRAZOLE SO40 MG PO
--- OUTSIDE RECORDS SUMMARY | 2024-07-01 16:21 | XMS ---
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 EJoseline VISIT COUNT (12 MO.) [address] [place] [address] TOTAL 2 NOTE: Visits indicate total known visits. ED/UCC VISIT TRACKING (12 MO.) 07/01/2024 16:15 [facility] [address] [place] TYPE: Emergency COMPLAINT: - CHEST PAIN 06/08/2024 14:48 [facility] [place] TYPE: Emergency COMPLAINT: - VOMITING DIAGNOSES: - Allergy status to narcotic agent - Allergy status to other drugs, medicaments and biological substances - Allergy status to penicillin - Esophagitis, unspecified without bleeding - Nausea with vomiting, unspecified - Other retirement (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 - Personal history of nicotine dependence INPATIENT VISIT TRACKING (12 MO.) No inpatient visits to display in this time frame [email or web address]
[2024-07-01] MEDS ORDERED: ALBUTEROL/IPRATROPIUM 3 ML NEB ONE (16:44)
[2024-07-01] MEDS ORDERED: SODIUM CHLORIDE 0.9% 1,000 ML IV ONE (17:00)
[2024-07-01] MEDS ORDERED: AZITHROMYCIN/DEXTROSE 500 MG/250 ML BAG IV ONE (17:00)
[2024-07-01] MEDS ORDERED: ACETAMINOPHEN 500 MG TAB PO ONE (17:00)
[2024-07-01] MEDS ORDERED: SODIUM CHLORIDE 0.9% 1,000 ML IV PRN (17:00)
[2024-07-01] MEDS ORDERED: CEFTRIAXONE/SODIUM CHLORIDE 2 GM/100 ML PIGGYBACK IV ONE (17:00)
[2024-07-01] MEDS ORDERED: LORazepam 1 MG TAB PO ONE (17:15)
[2024-07-01 18:01] LABS: BILIRUBIN, URINE NEGATIVE (negative); BLOOD/HGB, URINE LARGE (Negative); KETONE, URINE NEGATIVE (Negative); LEUK ESTERASE, URINE NEGATIVE (negative); NITRITE, URINE NEGATIVE (negative)
[2024-07-01 18:06] LABS: EPITHELIAL CELLS, URINE SQUAMOUS 1+ /lpf (0-1+); RED BLOOD CELLS, URINE >50 /hpf (0-5)
[2024-07-01 18:07] LABS: BACTERIA, URINE 1+ /hpf (negative); CASTS, URINE NONE SEEN \\lpf; CRYSTALS, URINE NONE SEEN (0-1+)
[2024-07-01 18:08] LABS: COLLECTION TYPE, URINE CLEAN CATCH; REFLEX CULTURE, URINE No (No)
[2024-07-01 18:24] LABS: BASOPHILS 0.4 % (0-2); EOSINOPHILS 1.1 % (0-6); HEMATOCRIT 41.1 % (35.0-50.0); HEMOGLOBIN 13.9 g/dL (12.0-18.0); LYMPHOCYTES 26.3 % (24-44); MCHC 33.8 g/dl (30-36); MCV 88.8 fl (81-99); MONOCYTES 5.6 % (0-12); NEUTROPHILS 66.6 % (39-80); PLATELET COUNT 303 K/uL (140-440); RBC 4.63 M/ul (4.3-5.7); RDW 13.9 (10.5-15.0)
[2024-07-01 18:33] LABS: INR 1.02 (0.80-1.30)
[2024-07-01 18:35] LABS: PARTIAL THROMBOPLASTIN TIME 26.1 Sec (22.9-41.3)
[2024-07-01 18:38] LABS: ALBUMIN 3.4 g/dL (3.4-5.0); ALBUMIN/GLOBULIN RATIO 0.85 (1.1-2.4); ANION GAP 13.5 (7-21); BILIRUBIN, TOTAL 0.2 ng/dL (0.2-1.0); BUN/CREATININE RATIO 8.33 (6.0-28.6); CALCIUM 9.1 mg/dL (8.5-10.1); CREATININE, SERUM 1.2 mg/dL (0.55-1.02); POTASSIUM 3.5 mmol/L (3.5-5.1); PROTEIN, TOTAL 7.4 g/dL (6.4-8.2)
[2024-07-01 18:41] LABS: LACTIC ACID, BLOOD 1.7 mmol/L (0.4-2.0)
[2024-07-02 01:18] VITALS: BP 155/83
--- NOTE | 2024-07-03 18:30 | EKG ---
[facility] [address] [facility] [place], [place] [address] Signed Normal sinus rhythm with sinus arrhythmia Normal ECG When compared with ECG of 09-APR-2022 17:08, No significant change was found Confirmed by Kelvin Pedersen MD ([id number]) on 07/03/2024 6:30:54 PM Electronically Signed By: KELVIN PEDERSEN MD 07/03/241829 PATIENT NAME: ANTIONETTE LOUIE Electrocardiogram DATE OF : 73 PHYSICIAN: KELVIN PEDERSEN MD REPORT #: [id number] REPORT IS CONFIDENTIAL AND NOT TO BE RELEASED WITHOUT AUTHORIZATION
== END 2024-07-02 01:18 | disposition home or self-care (01) ==
LOC: ED 16:14
PROVIDERS: Emergency Medicine
DX: B34.9 Viral infection, unspecified (principal); Z87.891 Personal history of nicotine dependence; Z88.0 Allergy status to penicillin; Z88.5 Allergy status to narcotic agent; Z88.8 Allergy status to other drugs, medicaments and biological substances; Z79.899 Other long term (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; Z16.33 Resistance to antiviral drug(s)
CPT/HCPCS: 36415; 71045; 80053; 81001; 83605; 84484; 85025; 85610; 85730; 87040; 87502; 93005; 93010; 99285-25; A9270; A9270-GY; U0002

== ENCOUNTER 2024-08-08 20:33 | Emergency (ER) | payer OTHER ==
[~2024-08-08] VITALS: Ht 157.5 cm; Wt 101.4 kg
[2024-08-08] MEDS ORDERED: ONDANSETRON ODT8 MG PO (22:16)
[2024-08-08] MEDS ORDERED: CLARITIN10 M2 PO (22:17)
[2024-08-08] MEDS ORDERED: METHYLPREDNISOLO4 M1 PO (22:49)
[2024-08-08 23:03] VITALS: BP 169/100
== END 2024-08-08 23:00 | disposition home or self-care (01) ==
LOC: ED 20:33
DX: L25.3 Unspecified contact dermatitis due to other chemical products (principal); K21.9 Gastro-esophageal reflux disease without esophagitis; K58.9 Irritable bowel syndrome, unspecified; J45.909 Unspecified asthma, uncomplicated; M79.7 Fibromyalgia; Z87.891 Personal history of nicotine dependence; Z88.0 Allergy status to penicillin; Z88.5 Allergy status to narcotic agent; Z79.899 Other long term (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; Z88.8 Allergy status to other drugs, medicaments and biological substances
CPT/HCPCS: 99282

== ENCOUNTER 2024-08-14 17:34 | Emergency (ER) | payer OTHER ==
[~2024-08-14] VITALS: Ht 157.5 cm; Wt 102.1 kg
[~2024-08-14 17:34] MED LIST changes: +CLARITIN10 M2 PO
--- OUTSIDE RECORDS SUMMARY | 2024-08-14 17:40 | XMS ---
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 EJoseline VISIT COUNT (12 MO.) [address] [place] [address] TOTAL 4 NOTE: Visits indicate total known visits. 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 - Personal history of nicotine dependence - Unspecified asthma, uncomplicated - Unspecified contact dermatitis due to other chemical products 07/01/2024 16:15 [facility] [place] TYPE: Emergency COMPLAINT: - CHEST PAIN DIAGNOSES: - Allergy status to narcotic agent - Allergy status to other drugs, medicaments and biological substances - Allergy status to penicillin - Chest pain, unspecified - Other long-term (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 - Personal history of nicotine dependence - 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
[2024-08-14 20:11] LABS: BILIRUBIN, URINE NEGATIVE (negative); BLOOD/HGB, URINE SMALL (Negative); KETONE, URINE NEGATIVE (Negative); LEUK ESTERASE, URINE NEGATIVE (negative); NITRITE, URINE NEGATIVE (negative)
[2024-08-14] MEDS ORDERED: SODIUM CHLORIDE 0.9% 1,000 ML IV ONE (20:15)
[2024-08-14] MEDS ORDERED: ondansetron HCL 4 MG/2 ML VIAL IV ONE (20:15)
[2024-08-14 20:20] LABS: BACTERIA, URINE 1+ /hpf (negative); CASTS, URINE NONE SEEN \\lpf; COLLECTION TYPE, URINE CLEAN CATCH; CRYSTALS, URINE NONE SEEN (0-1+); EPITHELIAL CELLS, URINE SQUAMOUS 2+ /lpf (0-1+); REFLEX CULTURE, URINE No (No)
[2024-08-14] MEDS ORDERED: MORPHINE SULFATE 4 MG/ML VIAL IV ONE (20:30)
[2024-08-14] MEDS ORDERED: fentaNYL citrate 100 MCG/2 ML VIAL IV ONE (20:30)
[2024-08-14 20:45] LABS: BASOPHILS 0.3 % (0-2); EOSINOPHILS 1.2 % (0-6); HEMOGLOBIN 15.1 g/dL (12.0-18.0); LYMPHOCYTES 15.3 % (24-44); MCH 30.1 (27-36); MCHC 33.6 g/dl (30-36); MCV 89.7 fl (81-99); MONOCYTES 5.9 % (0-12); NEUTROPHILS 77.3 % (39-80); PLATELET COUNT 301 K/uL (140-440); RBC 5.01 M/ul (4.3-5.7)
[2024-08-14 21:01] LABS: ALBUMIN 3.5 g/dL (3.4-5.0); ALBUMIN/GLOBULIN RATIO 0.81 (1.1-2.4); ANION GAP 12.3 (7-21); BILIRUBIN, TOTAL 0.3 ng/dL (0.2-1.0); BUN/CREATININE RATIO 6.93 (6.0-28.6); CREATININE, SERUM 1.01 mg/dL (0.55-1.02); POTASSIUM 4.3 mmol/L (3.5-5.1); PROTEIN, TOTAL 7.8 g/dL (6.4-8.2)
[2024-08-14] MEDS ORDERED: ONDANSETRON 4 MG TAB ODT SL ONE (21:30)
[2024-08-14] MEDS ORDERED: OXYCODONE/APAP 5/325 TAB PO ONE (21:30)
[2024-08-14] MEDS ORDERED: PYRIDIUM200 MG PO (21:47)
[2024-08-14] MEDS ORDERED: ONDANSETRON ODT8 MG PO (21:47)
[2024-08-14] MEDS ORDERED: MACROBID 100 M100 MG PO (21:47)
[2024-08-14] MEDS ORDERED: ONDANSETRON 4 MG HOME.PACK SL ONE (22:00)
[2024-08-14] MEDS ORDERED: NITROFURANTOIN MONOHYD MACROCR 100 MG HOME.PACK PO ONE (22:00)
[2024-08-14 22:22] VITALS: BP 157/87
== END 2024-08-14 22:22 | disposition home or self-care (01) ==
LOC: ED 17:34
PROVIDERS: Family Medicine
DX: N39.0 Urinary tract infection, site not specified (principal); J45.909 Unspecified asthma, uncomplicated; M79.7 Fibromyalgia; K21.9 Gastro-esophageal reflux disease without esophagitis; K58.9 Irritable bowel syndrome, unspecified; Z87.891 Personal history of nicotine dependence; Z88.0 Allergy status to penicillin; Z88.5 Allergy status to narcotic agent; Z88.8 Allergy status to other drugs, medicaments and biological substances; Z88.6 Allergy status to analgesic agent; Z88.3 Allergy status to other anti-infective agents; Z79.899 Other long term (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
CPT/HCPCS: 36415; 80053; 81001; 83690; 84703; 85025; 99284; A9270

== ENCOUNTER 2024-12-26 09:20 | Emergency (ER) | payer OTHER ==
[~2024-12-26] VITALS: Ht 157.5 cm; Wt 95.7 kg
[~2024-12-26 09:20] MED LIST changes: +MACROBID 100 M100 MG PO
[2024-12-26] MEDS ORDERED: TUMS200 MG PO (10:31)
[2024-12-26] MEDS ORDERED: MAALOX ADVANCE355 ML PO (10:31)
[2024-12-26 10:51] LABS: BILIRUBIN, URINE NEGATIVE (negative); BLOOD/HGB, URINE TRACE-I (Negative); KETONE, URINE TRACE (Negative); LEUK ESTERASE, URINE NEGATIVE (negative); NITRITE, URINE NEGATIVE (negative)
[2024-12-26 11:03] LABS: BACTERIA, URINE 2+ /hpf (negative); CASTS, URINE NONE SEEN \\lpf; COLLECTION TYPE, URINE CLEAN CATCH; CRYSTALS, URINE CALCIUM OXALATE 1+ (0-1+); EPITHELIAL CELLS, URINE SQUAMOUS 2+ /lpf (0-1+); REFLEX CULTURE, URINE No (No); WHITE BLOOD CELLS, URINE 0-1 /HPF (0-5)
[2024-12-26] MEDS ORDERED: ACETAMINOPHEN 500 MG TAB PO ONE (11:15)
[2024-12-26 12:15] VITALS: BP 142/72
== END 2024-12-26 12:16 | disposition home or self-care (01) ==
LOC: ED 09:20
PROVIDERS: Emergency Medicine
DX: R50.9 Fever, unspecified (principal); K21.9 Gastro-esophageal reflux disease without esophagitis; J45.909 Unspecified asthma, uncomplicated; Z87.891 Personal history of nicotine dependence; Z88.0 Allergy status to penicillin; Z88.5 Allergy status to narcotic agent; Z88.6 Allergy status to analgesic agent; Z88.3 Allergy status to other anti-infective agents; Z88.8 Allergy status to other drugs, medicaments and biological substances; Z79.899 Other long term (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
CPT/HCPCS: 81001; 84703; 99283; A9270

== ENCOUNTER 2025-01-09 09:42 | Emergency (ER) | payer OTHER ==
[~2025-01-09] VITALS: Ht 157.5 cm; Wt 97.0 kg
[~2025-01-09 09:42] MED LIST changes: +MAALOX ADVANCE355 ML PO; +TUMS200 MG PO
--- OUTSIDE RECORDS SUMMARY | 2025-01-09 09:48 | XMS ---
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 EJoseline VISIT COUNT (12 MO.) [address] [place] [address] TOTAL 6 NOTE: Visits indicate total known visits. 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 - Personal history of nicotine dependence - Unspecified asthma, uncomplicated 08/14/2024 17:34 [facility] [place] TYPE: Emergency COMPLAINT: - ABDOMINAL PAIN DIAGNOSES: - Allergy status to analgesic agent - Allergy status to narcotic agent - Allergy status to other anti-infective agents - Allergy status to other drugs, medicaments and biological substances - Allergy status to penicillin - Fibromyalgia - Gastro-esophageal reflux disease without esophagitis - Irritable bowel syndrome without diarrhea - 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 - Pelvic and perineal pain - Personal history of nicotine dependence - Unspecified asthma, uncomplicated - Urinary tract infection, site not specified 08/08/2024 20:33 [facility] [place] TYPE: Emergency COMPLAINT: - ALLERGIC REACTION DIAGNOSES: - Allergy status to narcotic agent - Allergy status to other drugs, medicaments and biological substances - Allergy status to penicillin - Allergy, unspecified, initial encounter - Fibromyalgia - Gastro-esophageal reflux disease without esophagitis - Irritable bowel syndrome without diarrhea - 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 [place] TYPE: Emergency COMPLAINT: - VOMITING DIAGNOSES: - Allergy status to narcotic agent - Allergy status to other drugs, medicaments and biological substances - Allergy status to penicillin - Esophagitis, unspecified without bleeding - Nausea with vomiting, unspecified - Other [facility] (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 - Personal history of nicotine dependence INPATIENT VISIT TRACKING (12 MO.) No inpatient visits to display in this time frame [id number]
[2025-01-09] MEDS ORDERED: TRIAMCINOLONE A80 GM TOP (09:54)
[2025-01-09] MEDS ORDERED: PANTOPRAZOLE SO40 MG PO (09:55)
[2025-01-09] MEDS ORDERED: ONDANSETRON ODT8 MG PO (09:55)
[2025-01-09] MEDS ORDERED: predniSONE 20 MG TAB PO ONE (10:30)
[2025-01-09] MEDS ORDERED: FAMOTIDINE 20 MG TAB PO ONE (10:30)
[2025-01-09 10:39] VITALS: BP 129/65
== END 2025-01-09 10:40 | disposition home or self-care (01) ==
LOC: ED 09:42
DX: L27.0 Generalized skin eruption due to drugs and medicaments taken internally (principal); L29.9 Pruritus, unspecified; T47.1X5A Adverse effect of other antacids and anti-gastric-secretion drugs, initial encounter; J45.909 Unspecified asthma, uncomplicated; K21.9 Gastro-esophageal reflux disease without esophagitis; Z87.891 Personal history of nicotine dependence; Z88.0 Allergy status to penicillin; Z88.5 Allergy status to narcotic agent; Z88.6 Allergy status to analgesic agent; Z88.3 Allergy status to other anti-infective agents; Z88.8 Allergy status to other drugs, medicaments and biological substances; Z79.899 Other long term (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
CPT/HCPCS: 99282; J7512

== ENCOUNTER 2025-05-05 10:30 | Emergency (ER) | payer OTHER ==
[~2025-05-05] VITALS: Ht 157.5 cm; Wt 99.5 kg
[~2025-05-05 10:30] MED LIST changes: +FAMOTIDINE40 MG PO; +IBU800 MG PO; +TRIAMCINOLONE A80 GM TOP
--- OUTSIDE RECORDS SUMMARY | 2025-05-05 10:37 | XMS ---
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 Pritesh VISIT COUNT (12 MO.) 9 [facility] TOTAL 9 NOTE: Visits indicate total known visits. ED/UCC VISIT TRACKING (12 MO.) 05/05/2025 10:31 [facility] [place] TYPE: Emergency COMPLAINT: - FLANK PAIN 03/22/2025 21:35 [facility] [place] TYPE: Emergency COMPLAINT: - FINGER INJURY DIAGNOSES: - Contusion of left middle finger without damage to nail, initial encounter - Gastro-esophageal reflux disease without esophagitis - Personal history of nicotine dependence - Post-traumatic stress disorder, unspecified - Struck by dog, initial encounter 03/07/2025 11:36 [facility] [place] TYPE: Emergency COMPLAINT: - LT FINGER INJURY 01/09/2025 09:42 [facility] [place] TYPE: Emergency COMPLAINT: - SKIN PROBLEM DIAGNOSES: - Adverse effect of other antacids and [id number]-[id number] drugs, initial encounter - Allergy status to analgesic agent - Allergy status to narcotic agent - Allergy status to other anti-infective agents - Allergy status to other drugs, medicaments and biological substances - Allergy status to penicillin - Gastro-esophageal reflux disease without esophagitis - Generalized skin eruption due to drugs and medicaments taken internally - Other nursing home (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 - Personal history of nicotine dependence - Pruritus, unspecified - Unspecified asthma, uncomplicated 12/26/2024 09:20 [facility] [place] TYPE: Emergency COMPLAINT: - WEAKNESS DIAGNOSES: - Allergy status to analgesic agent - Allergy status to narcotic agent - Allergy status to other anti-infective agents - Allergy status to other drugs, medicaments and biological substances - Allergy status to penicillin - Fever, unspecified - Gastro-esophageal reflux disease without esophagitis - Other nursing home (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 - Personal history of [...] bowel syndrome without diarrhea - 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 - Pelvic and perineal [...] bowel syndrome without diarrhea - 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 - Personal history of nicotine dependence - Unspecified asthma, uncomplicated - Unspecified contact dermatitis due to other chemical products 07/01/2024 16:15 [facility] [place] TYPE: Emergency COMPLAINT: - CHEST PAIN DIAGNOSES: - Allergy status to narcotic agent - Allergy status to other drugs, medicaments and biological substances - Allergy status to penicillin - Chest pain, unspecified - 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
[2025-05-05 10:55] LABS: BLOOD/HGB, URINE TRACE-L (Negative); KETONE, URINE NEGATIVE (Negative); LEUK ESTERASE, URINE NEGATIVE (negative); NITRITE, URINE NEGATIVE (negative)
[2025-05-05 11:06] LABS: BASOPHILS 0.3 % (0.1-1.2); EOSINOPHILS 2.4 % (0.7-5.8); LYMPHOCYTES 29.6 % (19.3-51.7); MCH 29.5 PG (25.6-32.2); MCHC 32.2 g/dL (32.2-35.5); MCV 91.6 fL (79.4-94.8); MONOCYTES 6.1 % (4.7-12.5); NEUTROPHILS 61.0 % (34.0-71.1); RBC 4.51 M/uL (3.93-5.22)
[2025-05-05 11:16] LABS: BACTERIA, URINE 2+ /hpf (negative); CASTS, URINE NONE SEEN \\lpf; CRYSTALS, URINE URIC ACID 3+ (0-1+); EPITHELIAL CELLS, URINE SQUAMOUS 2+ /lpf (0-1+); REFLEX CULTURE, URINE No (No)
[2025-05-05 11:21] LABS: ALT (SGPT) 25.0 U/L (14-59); AST (SGOT) 13.0 U/L (15-37); GLOMERULAR FILTRATION RATE,EST 53.0 mL/min (>60); PROTEIN, TOTAL 7.3 g/dL (6.4-8.2); UREA NITROGEN 9.0 mg/dL (7-18)
[2025-05-05] MEDS ORDERED: CEPHALEXIN500 M1 PO (14:01)
[2025-05-05 14:20] VITALS: BP 137/73
== END 2025-05-05 14:20 | disposition home or self-care (01) ==
LOC: ED 10:30
PROVIDERS: Emergency Medicine
DX: N20.0 Calculus of kidney (principal); K44.9 Diaphragmatic hernia without obstruction or gangrene; K21.9 Gastro-esophageal reflux disease without esophagitis; J45.909 Unspecified asthma, uncomplicated; F43.10 Post-traumatic stress disorder, unspecified; Z87.891 Personal history of nicotine dependence; Z88.8 Allergy status to other drugs, medicaments and biological substances; Z88.0 Allergy status to penicillin; Z88.5 Allergy status to narcotic agent; Z88.6 Allergy status to analgesic agent; Z88.3 Allergy status to other anti-infective agents; Z79.899 Other long term (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
CPT/HCPCS: 36415; 74176; 80053; 81001; 84703; 85025; 99284-25

== ENCOUNTER 2025-06-21 03:56 | Emergency (ER) | payer OTHER ==
[~2025-06-21] VITALS: Ht 157.5 cm; Wt 100.0 kg
--- OUTSIDE RECORDS SUMMARY | 2025-06-21 04:03 | XMS ---
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 EJoseline VISIT COUNT (12 MO.) 9 [facility] TOTAL 9 NOTE: Visits indicate total known visits. 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 - Personal history of nicotine dependence - Post-traumatic stress disorder, unspecified - Unspecified abdominal pain - Unspecified abnormal findings in urine - Unspecified asthma, uncomplicated 03/22/2025 21:35 [facility] [place] TYPE: Emergency [...] - Adverse effect of other antacids and [id number] drugs, initial encounter - Allergy status to analgesic agent - Allergy status to narcotic agent - Allergy status to other anti-infective agents - Allergy status to other drugs, medicaments and biological substances - Allergy status to penicillin - Gastro-esophageal reflux disease without esophagitis - Generalized skin eruption due to drugs and medicaments taken internally - Other residential (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 - Personal history of [...] Gastro-esophageal reflux disease without esophagitis - 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 - Personal history of [...] Irritable bowel syndrome without diarrhea - Other residential (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 - Pelvic and perineal [...] Irritable bowel syndrome without diarrhea - 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 - Personal history of nicotine dependence - Unspecified asthma, uncomplicated - Unspecified contact dermatitis due to other chemical products 07/01/2024 16:15 [facility] [place] TYPE: Emergency COMPLAINT: - CHEST PAIN DIAGNOSES: - Allergy status to narcotic agent - Allergy status to other drugs, medicaments and biological substances - Allergy status to penicillin - Chest pain, unspecified - Other residential (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 - Personal history of nicotine dependence - Resistance to antiviral drug(s) - Viral infection, unspecified INPATIENT VISIT TRACKING (12 MO.) No inpatient visits to display in this time frame [id number]
[2025-06-21] MEDS ORDERED: ONDANSETRON 4 MG TAB ODT SL ONE (04:30)
[2025-06-21 04:36] LABS: BASOPHILS 0.3 % (0.1-1.2); EOSINOPHILS 2.0 % (0.7-5.8); LYMPHOCYTES 25.3 % (19.3-51.7); MCH 29.6 PG (25.6-32.2); MCHC 32.6 g/dL (32.2-35.5); MCV 90.9 fL (79.4-94.8); MONOCYTES 4.9 % (4.7-12.5); NEUTROPHILS 67.1 % (34.0-71.1); RBC 4.49 M/uL (3.93-5.22)
[2025-06-21 04:51] LABS: ALT (SGPT) 24.0 U/L (14-59); AST (SGOT) 13.0 U/L (15-37); GLOMERULAR FILTRATION RATE,EST 60.0 mL/min (>60); PROTEIN, TOTAL 7.1 g/dL (6.4-8.2); UREA NITROGEN 12.0 mg/dL (7-18)
[2025-06-21 05:13] LABS: BLOOD/HGB, URINE NEGATIVE (Negative); KETONE, URINE NEGATIVE (Negative); LEUK ESTERASE, URINE NEGATIVE (negative); NITRITE, URINE NEGATIVE (negative)
[2025-06-21] MEDS ORDERED: CYCLOBENZAPRINE10 MG PO (05:27)
[2025-06-21] MEDS ORDERED: DOXYCYCLINE HYCLATE 100 MG HOME.PACK PO ONE (05:30)
[2025-06-21] MEDS ORDERED: ONDANSETRON 4 MG HOME.PACK SL ONE (05:30)
[2025-06-21] MEDS ORDERED: CYCLOBENZAPRINE HCL 10 MG HOME.PACK PO ONE (05:30)
[2025-06-21 05:48] VITALS: BP 175/88
[2025-06-21 06:57] LABS: N. GONORRRHOEAE BY PCR NOT DETECTED (NOT DETECT)
== END 2025-06-21 05:49 | disposition home or self-care (01) ==
LOC: ED 03:56
PROVIDERS: Family Medicine
DX: N89.8 Other specified noninflammatory disorders of vagina (principal); I88.9 Nonspecific lymphadenitis, unspecified; K21.9 Gastro-esophageal reflux disease without esophagitis; Z87.891 Personal history of nicotine dependence; Z88.0 Allergy status to penicillin; Z88.5 Allergy status to narcotic agent; Z88.6 Allergy status to analgesic agent; Z88.3 Allergy status to other anti-infective agents; Z88.8 Allergy status to other drugs, medicaments and biological substances; Z79.899 Other long term (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
CPT/HCPCS: 36415; 80053; 81003; 85025; A9270

== ENCOUNTER 2025-09-10 15:17 | Emergency (ER) | payer OTHER | END 2025-09-10 16:55 | disposition home or self-care (01) | LOC: ED 15:17 | DX: M54.50 Low back pain, unspecified (principal); K21.9 Gastro-esophageal reflux disease without esophagitis; F43.10 Post-traumatic stress disorder, unspecified; Z87.442 Personal history of urinary calculi; J45.909 Unspecified asthma, uncomplicated; Z87.891 Personal history of nicotine dependence; Z79.899 Other long term (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; Z79.2 Long term (current) use of antibiotics ==